=== PATIENT | male | born 1980 ===

== ENCOUNTER 2017-07-05 10:22 | Inpatient (IN) | payer MEDICAID, OTHER ==
[~2017-07-05] VITALS: Ht 180.3 cm; Wt 83.6 kg
[2017-07-05 10:41] VITALS: BP 126/73; PULSE 92; RESP 20; O2SAT 98
--- NOTE | 2017-07-05 11:58 | ED.REPORT ---
HPI-Psychiatric Illness Date of Service Jul 05, 2017 ED Provider: Alin Nguyen DO The pt is a 36 y/o male with a hx of bipolar disorder, schizophrenia, meth, heroin, and alcohol use who presents to the ED from [facility] for a mental health evaluation. As per the N staff member the pt has been anxious all night. He knocked over some furniture 3 days ago due to feeling frustrated and judged by the other men at the center. In the ED, he states he feels great and is trying to get better. He denies suicidal ideation, homicidal ideation, hallucinations, difficulty sleeping, and any other sx at this time. He reports he has not used drugs or alcohol for the last 60 days. He stopped taking Suboxone 2 weeks ago. Nursing Notes Stated Complaint: MENTAL HEALTH EVAL Chief Complaint: Psychiatric Complaint Nursing Notes Reviewed: Yes Allergies: Coded Allergies: No Known Allergies (Unverified , 07/05/17) General Time Seen by MD: 11:57 Chief Complaint Other (mental health eval) Hx Obtained From: Patient Arrived By: Walk-in Onset Occurred: Yesterday Severity: Current: No pain currently Severity: Maximum: No pain Recent Healthcare: No recent doctor visit Risk-Psychiatric Illness Suicide Risk Stratification RF Statements: Risk factors reviewed Past Medical History Past Medical History Bipolar disorder Schizophrenia Previous hx of meth and heroin use Past Surgical History none reported Smoking History Current Every Day Smoker Ambulatory Status Independent Review of Systems Denies: difficulty sleeping Psychiatric: Reports: Anxiety, Denies: Hallucinations, auditory, Hallucinations, visual, Homicidal ideation , Suicidal ideation Complete sys rev & neg: except as marked. Physical Exam Initial Vital Signs Vital Signs (First) Date Time Temp Pulse Resp B/P Pulse Ox O2 Delivery O2 Flow Rate FiO2 07/05/17 10:41 37.2 92 20 126/73 98 Room Air Initial VS: Reviewed Head / Eyes: Atraumatic, Normocephalic Neck: Supple, Non-tender, Full range of motion Respiratory: No respiratory distress Cardiovascular: Regular rate & rhythm Abdomen / GI: No guarding, No distention Extremities: Vascular intact, Neuro intact, No swelling, No tenderness Skin: Warm, Dry, No cyanosis General/Constitutional: Awake, Alert, No acute distress, Well appearing (clean) , Cooperative Neurologic: Oriented X3, Speech NL, No motor deficits, No sensory deficits Psychiatric: Affect NL, Not suicidal, Not homicidal, No hallucinations Abnormal Mood/Affect: Positive: Pressured speech States "I feel great" Interpretation & Diagnostics Lab Results Interpretation Test 07/05/17 11:29 Hold Urine Received (Received) Re-Eval/Medical Decision Med Decision/Clinical Course Patient is sent to the ER from a substance abuse inpatient facility for concerns for mental health. ER child welfare social worker has been involved and spoken with the facility multiple times. The facility is not palpable taking the patient back without stabilization of the mental health. Inpatient psychiatry at [facility] contacted, Dr. Hansen, he agrees to see the patient in the morning. Recommends dosing with risperidone. Risperidone was held initially as the prior 2 mg of Ativan has given the patient an appropriate level of calmness and de-escalation. The plan in the morning is to have psychiatry reevaluate the patient and either transfer the patient back to the substance abuse facility if the patient is more stable or admit the patient into the hospital for psychiatric treatment Source of Hx: Old records Re-Evaluation/Progress #1: Time of Eval: 12:08 Re-Evaluation/Progress Note: Discussed the plan to have a child welfare social worker meet the pt. He understands and agrees with the plan. All questions answered. Re-Evaluation/Progress #2: Time of Eval: 14:11 Re-Evaluation/Progress Note: The child welfare social worker states the pt can likely be discharged. She will contact [facility] for more information and concerns. Re-Evaluation/Progress #3: Time of Eval: 15:30 Re-Evaluation/Progress Note: DRY PLASTERER HELPER called [facility]. As per the evaluation done by the pt's melt supervisor at [facility], he had word salad and tangential speech. He was also hyperfocused on his notepad, had not been sleeping and reported that he was talking to spirits. The pt was sent to the ED given his sx and hx of bipolar disorder and schizophrenia. The pt's mother reports that he is on [place]. However as per the pt's melt supervisor, the pt has not been taking his medications. DRY PLASTERER HELPER does not think the pt is showing any concering sx in the ED and can be discharged. Re-Evaluation/Progress #4: Time of Eval: 15:47 Re-Evaluation/Progress Note: Rechecked the pt. He is pacing the room. When asked how he is feeling, he states "Ask Al [place]. He figured out global warming! Talk to him!". Re-Evaluation/Progress #5: Time of Eval: 16:06 Re-Evaluation/Progress Note: As per the child welfare social worker, [facility] will not accept the pt back due to his condition. They don't have staff to take care of pschiatric patients. Re-Evaluation/Progress #6: Time of Eval: 16:09 Re-Evaluation/Progress Note: Rechecked the pt with DRY PLASTERER HELPER. He does not want to be admitted. Consultation : Referral / Consult Name: Mio Hansen MD Consulted With: Psychiatry Call Returned at: 16:27 Life Insurance Agent: Will see patient, Agrees with eval, Agrees with plan, Accepts admit Note: Dr. Hansen recommends risperdal 4mg and admission if the pt is not stable by tomorrow morning. Counseled Regarding: Diagnosis, Lab results Discharge & Departure Shift Change Sign-Out Patient Care Transferred: Yes Discussed Complaint(s): Yes Laboratory Evaluation: Lab evaluation discussed Impression: Primary Impression: Schizophrenia Schizophrenia type: unspecified Qualified Code: F20.9 - Schizophrenia, unspecified )( Condition at Discharge: No suicidal ideation, No homicidal ideation Referrals: OTHER,PHYSICIAN (PCP) Care Transferred to: Dr. Little Care Transferred at: 18:00 Scribe Attestation Portions of this note were transcribed by Raina Bolanos. I,, personally performed the history,physical exam and medical decision-making;I reviewed and confirmed the accuracy of the information in the transcribed note. Signed by Alfie Price. 07/05/17 Alin Nguyen DO Jul 05, 2017 11:58 Raina Bolanos Jul 05, 2017 12:09
[2017-07-05 14:43] VITALS: BP 120/80; PULSE 90; RESP 16; O2SAT 100
[2017-07-05] MEDS ORDERED: LORazepam 1 mg Tablet PO ONE ×2 (15:40→15:50)
[2017-07-05] MEDS: risperiDONE 1 mg Tablet PO ONE ×2 (16:30→17:23)
--- NOTE | 2017-07-05 17:30 | NUR ---
ED MEAT CUTTING BLOCK REPAIRER Note D&A: Per RN, pt came from [facility] where he has been for the last month for inpt substance use tx. Pt tox screen is negative. Pt denying any current Suicidal or Homicidal ideation. MEAT CUTTING BLOCK REPAIRER called [facility] and spoke with the Clinical Take Up Supervisor Gianfranco who explained that pt has previous Dx of Schizophrenia and Bipolar disorder but was sent to their facility without any psychiatric medications and pt PCP is in [place]. Per Gianfranco from [facility], pt had decompensated over the weekend having an episode on Wednesday Night three days ago when he became angry and was throwing furniture. Pt was moved to a separate unit with less patients and stimulation. Per Gianfranco, pt was presenting with "word salad, strain of thought, inability to sleep Wednesday night, and denied any auditory or visual hallucinations but then spoke about talking to spirits and would be focused in writing in his notepad." Gianfranco explained that he was concerned about further decompensation and their facility's inability to treat or prescribe medications for his psychiatric illnesses and sent pt to the ED. Gianfranco explained he and their facility is most interested in pt receiving inpt hospitalization or at least a medication started that might help with his behaviors and stabilize him so he can continue his substance use tx. MEAT CUTTING BLOCK REPAIRER explained criteria for psychiatric inpt hospitalization. Gianfranco explained they did not feel comfortable accepting pt back to their facility without further attempts at stabilization. When met with pt, pt was having inconsistent behaviors and thoughts. Per RN, pt was making unusual statements about the air quality in [place] and Carbon monoxide. MEAT CUTTING BLOCK REPAIRER met with pt at bedside with MD briefly to discuss plan. Pt notepad with filled pages could be seen in pt room with him. Pt insight and judgement appeared to be impaired. Pt began to talk about finding "clarity and balance." MD discussed going back on [place] which Gianfranco stated pt had been on before, pt declined this due to weight gain. Pt was focused on discharging and getting back to his tx program. Pt was not agreeable to voluntary hospitalization but agreed to see psychiatrist to have medications looked at. Per MD, pt is not safe for discharge at this time. MD consulted with psychiatrist who will see pt tomorrow morning. Gianfranco from [facility] updated that pt will not be returning to their facility tonight. P: Pt to spend the night tonight and be evaluated by psych MD tomorrow morning for medication recommendations for stabilization prior to returning to [facility] for continued substance use tx. JONO Alonso
[2017-07-05 19:56] VITALS: BP 108/74; PULSE 84; RESP 14; O2SAT 100
[2017-07-05] MEDS ORDERED: risperiDONE 1 mg Tablet PO ONE (20:45)
[2017-07-05] MEDS ORDERED: LORazepam 2 mg Tablet PO ONE (20:45)
[2017-07-06 00:20] VITALS: PULSE 68; RESP 16; O2SAT 99
[2017-07-06] MEDS: OLANZapine Zydis ODT 5 mg Tablet PO SCH ×2 (03:14→08:30)
[2017-07-06] MEDS ORDERED: Ketamine 100 mg/mL 5 mL Inj ONE (05:23)
[2017-07-06] MEDS ORDERED: Haloperidol 5 mg/mL Inj ONE (05:25)
[2017-07-06] MEDS ORDERED: Haloperidol 5 mg/mL Inj IM STA (05:50)
[2017-07-06] MEDS ORDERED: Ketamine 100 mg/mL 5 mL Inj IM ONE (05:50)
[2017-07-06 06:09] VITALS: BP 145/83; PULSE 123; RESP 22; O2SAT 95
[2017-07-06 12:18] LABS: BASOPHILS % (AUTO) 0.1 % (0-3); EOSINOPHILS % (AUTO) 1.1 % (0-5); MONOCYTES % (AUTO) 8.7 % (4-12); Mean Corpuscular Hemoglobin 32.5 pg (27.0-35.0); Mean Corpuscular Volume 94.2 fL (81-100); NEUTROPHILS % (AUTO) 72.2 % (40-74); Platelet Count 323 bil/L (150-400)
[2017-07-06 16:30] VITALS: BP 119/79; PULSE 68; RESP 18; O2SAT 98
[2017-07-06] MEDS ORDERED: risperiDONE 2 mg Tablet PO SCH (17:25)
[2017-07-06] MEDS ORDERED: risperiDONE 2 mg Tablet PO ONE (18:31)
[2017-07-06 20:13] VITALS: BP 124/83; PULSE 72; RESP 18; O2SAT 99
[2017-07-06] MEDS ORDERED: Magnesium Hydroxide 10 mL Oral Concentration PO PRN (21:40)
--- NOTE | 2017-07-06 22:19 | NUR ---
Nursing Admit Pt arrival from our ED via wheelchair at 1940. AKILAH status 72 hour hold starting at 1805 on 07/06/19, pt deemed danger to self/gravely disabled. Pt to our ED directly from [facility] where pt had completed nearly on . Patient was noted to be having a psychotic break onset Wednesday with noted A/V hallucinations, word salad, and aggressive behavior. Pt required seclusion, restraints and medications to gain behavioral control in ED. Pt presents cooperative, medication compliant. HS snacks taken, PRN for sleep per patient request taken. Continuing to monitor mood, behavior, medication effectiveness and sleep quantity and quality. [facility] Addendum: 07/07/17 at 0521 by EILEEN RIDER RN 0530 Pt unable to get to sleep this shift. Up ambulating around unit, word salad, poor impulse control, difficult to direct, taking PRNs without difficulty.
[2017-07-06] MEDS ORDERED: ACYC400T2 PO (23:55)
[2017-07-06] MEDS ORDERED: BUPR1FIL3 SL (23:56)
[2017-07-06] MEDS ORDERED: PRAZ2CAP2 PO (23:57)
[2017-07-07] MEDS ORDERED: ACET500C49 PO (00:03)
[2017-07-07] MEDS ORDERED: ALBU8.5H2 INHALATION (00:12)
[2017-07-07] MEDS ORDERED: CALC-846 PO (00:15)
[2017-07-07] MEDS: LORazepam 1 mg Tablet PO PRN ×5 (00:27→22:34)
[2017-07-07] MEDS: hydrOXYzine Pamoate 25 mg Capsule PO PRN ×3 (00:27→19:38)
[2017-07-07] MEDS: OLANZapine Zydis ODT 5 mg Tablet PO SCH (06:21)
--- NOTE | 2017-07-07 12:24 | NUR ---
Nursing: Pt has been out on the unit, cooperative and calm. When asked for 2 words to describe how he feels, said, "peaceful and unified" He is speaking while eating with his eyes mostly closed and appears sedated. When asked what got him here, said"I was persuaded to come because of too much violence, " but denies feeling any of that now. He denies depression, anxiety, any disturbing thoughts, or A/V hallucinations. He is latent in his responses, polite in his requests and compliant with meds. He has a voracious appetite. He says, 'Tell them I want to go back to [place]." and says from there wants to go to [facility] in [place] which is apparently a hindu there. Addendum: 07/07/17 at 1250 by RYAN GUTIERREZ RN later expressed some restlessness and began cleaning and ordering the unit, walking, keeping busy Addendum: 07/07/17 at 1306 by RYAN GUTIERREZ RN 1299: Pt's calm and cooperative has become suddenly irritable and edgy and 2 mg Lorazepam and nicotine Lozenges given @ 1300. He requests notebook paper and a copy of the Pledge of Allegiance and this was given
[2017-07-07 12:32] VITALS: BP 113/52; PULSE 113
--- NOTE | 2017-07-07 15:53 | HP ---
[address] [address] HISTORY AND PHYSICAL PATIENT: JASON BLAND : 1980 MR#: [id number] ADMIT: 07/06/2017 JOB ID: [id number] IDENTIFICATION: The patient is a 36-year-old male, who had been staying at the [facility] chemical dependency treatment center. He is a poor historian and I do not have information about how long he has been staying or the degree of his substance use. REASON FOR ADMISSION: Client presented to the ED in transfer from [facility] for a psych evaluation. He had been posturing in an aggressive manner and threatening staff at [facility]. He is unable to return there until he has a psychiatric evaluation. HISTORY OF PRESENT ILLNESS: The patient presents today for evaluation and treatment of psychosis and threatening behavior. I met with him for a brief evaluation and reviewed course and records kept by [facility]. Client's main issue appears to be an exacerbation of schizophrenia. There are multiple notes in the chart where for several weeks he had been experiencing a high degree of stress and anxiety and had been up all night pacing and smoking. After a period of time, he began to become more psychotic stating delusional things such as "I am a [place]. [place] the [place]." "I am telling Alireza Guillen's and my story." He frightened the staff at [facility] and they brought him in here in the ED. He was initially calm but then became quite agitated and over a 48 hour period was given 8 mg of lorazepam, 20 mg of Haldol, 16 mg of Risperdal, 15 mg of Zyprexa, 1 mg of Klonopin, and 1000 mg of ketamine. He required four-point restraints and was transferred to our unit for care. The chronicity of his condition is unclear. At present, it is of a severe intensity, manifesting with symptoms of severe thought disorganization, impulse control, agitation and delusional thought. It all appears to be made worse by poor sleep, and a report that he had self discontinued Suboxone several weeks ago (client did have a heroin addiction in the past). At present, he is presenting with signs of significant emotional liability and marked impairment in judgment, insight, coping and reality testing. His impulse control is tenuous. Client refused to participate in psychiatric review of systems or physical review of systems. He refused to participate in past medical history, although from the ED. Medications none. Allergies none. Illnesses none. FAMILY MEDICAL HISTORY: Unknown. PAST PSYCHIATRIC HISTORY: There are references to schizophrenia, bipolar disorder and two inpatient hospitalizations at [facility]. His counselor at [facility] is Seamus. PSYCHOSOCIAL HISTORY: Client refused to participate although to the ED he stated he has struggled with heroin abuse. He denied legal issues. PHYSICAL EXAMINATION: Vital signs: 113/52, pulse 113, respiration 15, afebrile. Physical examination reviewed from the ED and essentially normal. LABORATORIES: CBC, liver, electrolytes, thyroid normal except for ALT of 76. Urine drug screen negative. BAL was negative. MENTAL STATUS EXAMINATION: Client was neatly dressed but had extremely poor eye contact and had an intense provocative stare. His behavior was restless, defiant and appeared hostile. His attitude was detached. Speech unintelligible or one-word responses. Pressured. Mood: Client refused to answer. Affect was high intensity, labile and appeared angry. Thought process: Client is unable to relate a coherent history at this time. His thought process is extremely concrete. He does not appear to be responding to internal stimuli. Thought content: Client refuses to talk. Cognition: Client refused to participate in orientation, memory or attention, concentrations. Client's insight and judgment are severely impaired. Impulse control poor. Client has a difficult time handling impulses of hunger or anger. Reality testing severely impaired. Competence to handle current stressors is currently being overwhelmed IMPRESSION: The patient is a 36-year-old male who has been staying at the [facility] trying to recover from previous substance abuse. There is a report that he has been a heroin addict as well as having schizophrenia, bipolar disorder, and two previous hospitalizations on the psychiatric unit at [facility]. He required an enormous amount of neuroleptics and sedatives to calm himself in the ED. At this time he is so sedated and nonverbal that I am concerned we may have oversedated him with the neuroleptics. We will try to get increased history from [facility] and his family over the next several days. Client has been detained on a 72 hour involuntary treatment hold and will go to court on Wednesday for a hearing. DIAGNOSIS: AXIS I 1. Preliminary psychosis, unspecified. 2. Reported schizophrenia. 3. Reported bipolar mood disorder. AXIS II Unknown. AXIS III None. AXIS IV Unknown. AXIS V Current global assessment of functioning equal to 25. PLAN: Recommend client be admitted to our unit and be provided with a high degree of safety through the structure and active adult engagement that he will receive here from mental health professionals and medical student, our mental health professionals, our psychiatric nurses and our the three psychiatrists on our staff. We will have him participate in one-to-one unit and group activities focused on improving coping skills, reality based thinking and coming up with a safety plan should psychosis return after discharge. At this time I will continue Risperdal at 4 mg h.s. Will try to meet with client on a daily basis to establish an alliance and will try to hydrate to minimize potential side effects of medications. The staff will use lorazepam if needed for agitation. Anticipate a 5-7 day stay.
[2017-07-07] MEDS ORDERED: IBUP400T22 PO (16:28)
[2017-07-07] MEDS: risperiDONE 2 mg Tablet PO SCH (19:38)
[2017-07-07] MEDS: Acyclovir 400 mg Tablet PO SCH (19:46)
--- NOTE | 2017-07-07 20:28 | NUR ---
Obs Dayshift Pt is restless at times, asks for things to do to keep busy or let out energy. Pt appears to do better w/ female staff, and does follow some directions for his aggression like pacing, listening to music, etc. Pt is internally preoccupied, and paranoid. Pt becomes delusional and irritable at times, restless and balling his fists. Pt can be redirected back to his room or to walk and talk w/ staff. Good ADL's, Good meals
--- NOTE | 2017-07-07 22:19 | NUR ---
NURSING NOTE [id number] Mood: "I don't need to be here. I want to go back to [facility]" Affect: disorganized, distracted, but polite and cooperative w/tx Behavior: pt. visible on fringes of milieu, sat in group room writing notes w/random words strewn across the pages, med compliant, requested his Acyclovir medication and PRN Tylenol and Ibuprofen for 8/10 [place] respectively. Pt. also given PRN Ambien and 50 mg Vistaril PRN @ HS. Pt. noted the ibuprofen is more effective than Tylenol for his [place]. Pt. seen trying to socialize w/female peers and avoiding male peers. Thought processes: paranoid, lacks insight into his condition, visibly responding to internal stimuli but denies AH/VH. Denies SI.
[2017-07-08] MEDS ORDERED: risperiDONE 2 mg Tablet PO ONE (02:35)
[2017-07-08] MEDS ORDERED: LORazepam 2 mg Tablet PO ONE (02:35)
--- NOTE | 2017-07-08 04:12 | NUR ---
Nursing Noc Pt noted to become more difficult to direct as shift continued, noted to become verbally hostile at one point while flexing his hands into fists. Pt was concerned that he was ready to leave now. "When can I get out of here" "I'm not spending another night here" " Everybody was yelling and screaming at N, if my dad had been there they would have had there asses kicked." Pt taking medications as directed, zero if any sleep this shift, Continuing to monitor mood, behavior and emotional state. Q15 minute safety checks, BHCP
[2017-07-08 08:00] VITALS: BP 108/74; PULSE 99; RESP 17
[2017-07-08] MEDS: Acyclovir 400 mg Tablet PO SCH ×2 (09:09→20:33)
--- NOTE | 2017-07-08 14:45 | NUR ---
NURSE NOTE DAY Mood: "My mood is great." Denies anxiety, depression. Affect: Restricted. Thought Process/Content: "I just want to win. I want to get out of here, get my stuff and go back to [facility]." Linear, goal-oriented. Behavior: Touched another female pt on back and should pt reminded that this is a no touch unit. Stands uncomfortably close to staff. Up for meals. Pacing halls. Attended community meeting. Addendum: 07/08/17 at 1446 by BALDEMAR DAVIS RN [employer]. AMBER Galeana.
--- NOTE | 2017-07-08 15:24 | PCM.PNPSY ---
Subjective Date of Service Jul 08, 2017 Subjective I spent 30 minutes both reviewing treatment plan with our clinical team, interviewing the patient and providing supportive/educational psychotherapy. I spent more than 50% of the time counseling the patient. I reviewed the treatment plan with the him and discussed options available including the potential risks, benefits and side effects. Chris reports a marked improvement in thought organization and mood stability. Staff reports that he has been active and participating well in one-to-one unit and group activities. He slept 6 hours and denies depression manic or psychotic symptoms review. Over the past 24 hours he has been more communicative and is not expressing psychotic thought. He is acting in a socially appropriate manner. He denies medication side effects. He was able to identify his medications and what they were used to treat. Current Medications Current Medications Acetaminophen 650 mg Q4H PRN PO Last administered on 07/07/17 15:20; Admin Dose 650 MG; Start 07/06/17 at 21:40 Acyclovir 400 mg BID PO Last administered on 07/08/17 09:09; Admin Dose 400 MG ; Start 07/07/17 at 20:30 Clonazepam 1 mg HS PRN PO Last administered on 07/07/17 19:38; Admin Dose 1 MG ; Start 07/06/17 at 21:40 Hydroxyzine Pamoate 50 mg Q4H PRN PO Last administered on 07/07/17 19:38; Admin Dose 50 MG; Start 07/06/17 at 21:40 Ibuprofen 600 mg Q6H PRN PO Last administered on 07/07/17 18:27; Admin Dose 600 MG; Start 07/06/17 at 21:40 Lorazepam 1-2MG PO DAILY PRN ANXIETY/ AGITATION DAILY PRN PO Last administered on 07/07/17 22:34; Admin Dose 2 MG; Start 07/06/17 at 21:40 Lorazepam 2 mg OT ONCE PO Last administered on 07/08/17 02:34; Admin Dose 2 MG ; Start 07/08/17 at 02:35; Stop 07/08/17 at 02:36; Status DC Nicotine 1 patch DAILY TOPICAL Last administered on 07/08/17 07:05; Admin Dose 1 PATCH; Start 07/06/17 at 22:21 Nicotine Polacrilex 2 mg Q2H PRN PO Last administered on 07/07/17 22:34; Admin Dose 2 MG; Start 07/06/17 at 22:25 Risperidone 2 mg OT ONCE PO Last administered on 07/08/17 02:34; Admin Dose 2 MG; Start 07/08/17 at 02:35; Stop 07/08/17 at 02:36; Status DC Risperidone 4 mg DAILY@2030 PO Last administered on 07/07/17 19:38; Admin Dose 4 MG; Start 07/07/17 at 20:30 Risperidone 4 mg ONCE ONCE PO Last administered on 07/06/17 18:55; Admin Dose 4 MG; Start 07/06/17 at 18:31; Stop 07/06/17 at 18:32; Status DC Mental Status Exam Vital Signs Vital Signs Date Time Temp Pulse Resp B/P Pulse Ox O2 Delivery O2 Flow Rate FiO2 07/08/17 08:00 36.2 99 17 108/74 Appearance: Neat/well groomed Attitude: Pleasant, Cooperative Behavior: No unusual behavior Affect: Well Modulated/Appropriate Mood: Dysthymic Thought Process/Associations: Goal Directed Speech Production: Normal Speech Rate: Normal Speech Articulation: Normal Thought Content: Appropriate Danger to Self/Suicidal Ideati: None Danger to Others: None Consciousness: Alert Orientation: Person, Place, Date, Situation Memory: Grossly Intact Estimate Intellectual Function: Above Average Basis for IQ estimate: Awareness current events, Word use/vocabulary, Educational history, Employment history Attention/Concentration & Cogn: Grossly Intact Cognitive Testing Method: Abstract Reasoning during interview, Proverb interpretation, Serial computations, Spelling forward & backward Insight: Limited Judgement: Limited Result Diagram: 07/06/17 1205 07/06/17 1205 Mental Health Plan The patient is a 36-year-old male who has been staying at the [facility] trying to recover from previous substance abuse. There is a report that he has been a heroin addict as well as having schizophrenia, bipolar disorder, and two previous hospitalizations on the psychiatric unit at [facility]. He required an enormous amount of neuroleptics and sedatives to calm himself in the ED. At this time he is so sedated and nonverbal that I am concerned we may have oversedated him with the neuroleptics. We will try to get increased history from [facility] and his family over the next several days. Client has been detained on a 72 hour involuntary treatment hold and will go to court on Wednesday for a hearing. Today he had a significant improvement in thought organization and mood stability. He denies medication side effects and believes he is on the right track to recovery. He was still somewhat confused about what happened and how he can set up treatment. I believe he would benefit from an additional 3-5 days of stabilization. [place] AXIS I 1. Preliminary psychosis, unspecified. 2. Reported schizophrenia. 3. Reported bipolar mood disorder. AXIS II Unknown. AXIS III None. AXIS IV Unknown. AXIS V Current global assessment of functioning equal to 40. Treatments Patient is being provided with a high degree of safety through our unit structure and active adult engagement provided by our mental health professionals, mental health technicians, psychiatric nurses and myself. We are focusing on developing improved coping skills and identifying stressors that may have led to current episode. We will attempt to: * Integrate into therapeutic groups, milieu and individual therapy. * Maintain in a closely monitored and structured unit * Provide low-stimulation environment * Obtain collateral data to assist in treatment planning * Assess degree of lability of affect and impulse control * Complete safety plan * Decrease frequency of relapse and need for re-hospitalization * Denies thoughts of harm to self and/or others * Establish a consistent sleep pattern * Medication effective in stabilization of mood and/or thought process * Reduce the risk of imminent harm to self and/or others by providing a safe environment * Tolerates medication without side effects Patient will be on the following psychiatric medications: Risperdal 4 mg at bedtime Education: Educate patient about recreational drug use as an etiology Educate about metabolic etiologies related to obesity Patient's legal status Patient is on a 72 hour involuntary treatment hold. Patient will be given the opportunity to talk to her rn bariatric and the rpg programmer Wednesday Anticipated number of hospital days to achieve above goals: 5 Disposition: [facility] Mio Glez MD Jul 08, 2017 15:24
--- NOTE | 2017-07-08 16:26 | NUR ---
Observations 0700 to 1900 Pt attended and participated in community meeting. Pt attended recreational activities. Pt ate a snack. Pt showered and had clothes washed. Pt appears pressured and easily angered at times. Pt is pleasant with female staff. Pt did not rest during shift. Breakfast: 100%. Lunch: 100%. Staff completed 15 min close observations as ordered.
[2017-07-08] MEDS: risperiDONE 2 mg Tablet PO SCH (20:33)
--- NOTE | 2017-07-08 23:10 | NUR ---
NURSE NOTE EVENING SHIFT [id number]: Pt has been active in the unit, using the group room, TV and walking around. Pt is friendly, polite, and calm with staff and others in the milieu, even assisting a Pt in his wheelchair. Pt has walked out of the bathroom in just a towel, or out of his room without a shirt, but has been polite when addressed by staff. Pt shows no signs of experiencing internal stimuli. Pt monitored q15 min. for safety, location and accountability.
--- NOTE | 2017-07-09 02:55 | NUR ---
nursing, nights, 11-7 s- when can i shower ? i had a bad dream about tupac. shots were fired. i know it was tupac. i don't want to much. how about just the klonopin. do you know about tupacolypse ? can i have the pledge of allegiance ? it worked minimally. yea i'll try that. thanks. o- has appeared to sleep after 2300 to midnight and [id number], asked for and received 1 mg of klonopin at 0200 and later 50 mg of vistaril at 0300. is currently lying quietly in bed. assessed q 15 minutes. a- inadequate/interupted sleep, responded well to staff reassurance and support, medication helpful, no apparent physical distress. p- monitor behavior/emotional state, quality, times and amount of sleep, use and effect of medication. lonnie
[2017-07-09] MEDS: Acyclovir 400 mg Tablet PO SCH ×2 (08:01→21:07)
[2017-07-09 12:35] VITALS: BP 125/77; PULSE 102; RESP 18
--- NOTE | 2017-07-09 12:56 | NUR ---
Nursing Note [id number] Behavior S/O: Pt has good appetite. Pt c/o neck pain he rated at a "4.5" on a scale of 1-10/10 the worst. Pt requested ibuprofen. 600 mg given with good effect. Pt signed SON for Zaynab Yañez of the [facility]. Pt is pleasant & cooperative. Some irritation noted when overstimulated by other patients on unit. Pt denied AH this morning, but was seen talking to himself later in the day. Pt took medications as ordered. A: Pt is slowly improving. P: Provide supportive environment. Monitor medications & effects.
--- NOTE | 2017-07-09 13:24 | PCM.PNPSY ---
Subjective Date of Service Jul 09, 2017 Subjective I spent 30 minutes both reviewing treatment plan with our clinical team, interviewing the patient and providing supportive/educational psychotherapy. I spent more than 50% of the time counseling the patient. I reviewed the treatment plan with the him and discussed options available including the potential risks, benefits and side effects. Chris reports continued improvement in thought organization and mood stability. Staff reports that he has been active and participating well in one-to-one unit and group activities. He slept only 2 hours and denies depression manic or psychotic symptoms review. Over the past 24 hours he has been more communicative and is not expressing psychotic thought. He is acting in a socially appropriate manner however he has in intensity that is demonstrated in his eye gazing, his speech and his ideas. I believe that Chris is in a manic phase. He is currently contained but I believe he needs an additional week of treatment. He denies medication side effects. He was able to identify his medications and what they were used to treat. Current Medications Current Medications Acyclovir 400 mg BID PO Last administered on 07/09/17 08:01; Admin Dose 400 MG; Start 07/07/17 at 20:30 Lorazepam 2 mg OT ONCE PO Last administered on 07/08/17 02:34; Admin Dose 2 MG ; Start 07/08/17 at 02:35; Stop 07/08/17 at 02:36; Status DC Risperidone 2 mg OT ONCE PO Last administered on 07/08/17 02:34; Admin Dose 2 MG; Start 07/08/17 at 02:35; Stop 07/08/17 at 02:36; Status DC Risperidone 4 mg DAILY@2030 PO Last administered on 07/08/17 20:33; Admin Dose 4 MG; Start 07/07/17 at 20:30 Mental Status Exam Appearance: Neat/well groomed Attitude: Pleasant, Cooperative Behavior: No unusual behavior Affect: Well Modulated/Appropriate Mood: Euphoric Thought Process/Associations: Goal Directed Speech Production: Normal Speech Rate: Pressured Speech Articulation: Normal Thought Content: Appropriate Danger to Self/Suicidal Ideati: None Danger to Others: None Consciousness: Alert Orientation: Person, Place, Date, Situation Memory: Grossly Intact Estimate Intellectual Function: Above Average Basis for IQ estimate: Awareness current events, Word use/vocabulary, Educational history, Employment history Attention/Concentration & Cogn: Grossly Intact Cognitive Testing Method: Abstract Reasoning during interview, Proverb interpretation, Serial computations, Spelling forward & backward Insight: Good Judgement: Limited Result Diagram: 07/06/17 1205 07/06/17 1205 Mental Health Plan The patient is a 36-year-old male who has been staying at the [facility] trying to recover from previous substance abuse. There is a report that he has been a heroin addict as well as having schizophrenia, bipolar disorder, and two previous hospitalizations on the psychiatric unit at [facility]. He required an enormous amount of neuroleptics and sedatives to calm in the ED. At that time he was so sedated and nonverbal that I was concerned we had oversedated him with the neuroleptics. He showed a gradual and steady improvement in social interactions and ADLs Over the past 72 hours. Today he had a significant improvement in thought organization and mood stability. He denies medication side effects and believes he is on the right track to recovery. He was still somewhat confused about what happened and how he can set up treatment. I believe he would benefit from an additional 3-5 days of stabilization. He slept only 2 hours and also he denies depression manic or psychotic symptoms review I believe that he is in a manic phase. He is currently contained but I believe he needs an additional week of treatment. [place] AXIS I 1. Preliminary psychosis, unspecified. 2. Reported schizophrenia. 3. Reported bipolar mood disorder. AXIS II Unknown. AXIS III None. AXIS IV Unknown. AXIS V Current global assessment of functioning equal to 40. Treatments Patient is being provided with a high degree of safety through our unit structure and active adult engagement provided by our mental health professionals, mental health technicians, psychiatric nurses and myself. We are focusing on developing improved coping skills and identifying stressors that may have led to current episode. We will attempt to: * Integrate into therapeutic groups, milieu and individual therapy. * Maintain in a closely monitored and structured unit * Provide low-stimulation environment * Obtain collateral data to assist in treatment planning * Assess degree of lability of affect and impulse control * Complete safety plan * Decrease frequency of relapse and need for re-hospitalization * Denies thoughts of harm to self and/or others * Establish a consistent sleep pattern * Medication effective in stabilization of mood and/or thought process * Reduce the risk of imminent harm to self and/or others by providing a safe environment * Tolerates medication without side effects Patient will be on the following psychiatric medications: Risperdal 4 mg at bedtime Initiate Depakote 250 mg twice a day Labs: Check Depakote level and CBC in 5 days Education: Educate patient about recreational drug use as an etiology Educate about metabolic etiologies related to obesity Patient's legal status Patient is on a 72 hour involuntary treatment hold. Patient will be given the opportunity to talk to her patternmaker plastics and the drafter landscape Wednesday Anticipated number of hospital days to achieve above goals: Depending on how client response in the next several days may be able to be transitioned back to [facility] anywhere from 3-7 days Disposition: Chalino Rocha Vance MD Jul 09, 2017 13:24
[2017-07-09] MEDS: hydrOXYzine Pamoate 25 mg Capsule PO PRN (16:23)
--- NOTE | 2017-07-09 20:18 | NUR ---
Dust Brush Assembler/Counselor: S: "How are you this morning?" O: Patient only slept 2 hours last night per staff. Patient denies S/I and H/I. He also denies auditory and visual hallucinations. Depression is 0/10 and anxiety is 0/10. When asked his mood, patient stated, "I'm doing good." A: Patient is cooperative, pleasant, euphoric, dysthymic, limited insight, limited judgment. P: Follow the care plan, coordinate with out-patient providers.
[2017-07-09] MEDS: risperiDONE 2 mg Tablet PO SCH (21:07)
--- NOTE | 2017-07-09 23:55 | NUR ---
Noc OBS [id number] Pt up and out on unit/pacing most of the night. He only slept 2.75 hours. Pt speech random. Appears to be responding to internal stimuli as he has been observed talking to self/someone not there. Observed Q15 as ordered.
[2017-07-10] MEDS: LORazepam 1 mg Tablet PO PRN ×3 (01:46→15:27)
--- NOTE | 2017-07-10 03:06 | NUR ---
nursing, nights, 11-7 s- we saved you. your . i'm portuguese. were warriors. no war. i'm not awol. chief jamia. sitting bull. red cloud. robert. our forefathers. no weapon of mass destruction. o- alternates between his room and the dinning room. will approach staff with above statements. has brief periods of agitation but can calm and has generally displayed appropriate behavior. received 400 mg of motrin at 0120 2 mg of ativan at 0145. slept briefly for maybe a half an hour. sitting in the dinning room praying. asked for and received 50 mg of vistaril at 0330. is currently writing in his room. a- inadequate sleep, responding to internal stimuli, responds well to staff support. no apparent physical distress. p- monitor behavior/emotional state, quality, times and amount of sleep, use and effect of medication. lonnie
[2017-07-10] MEDS: hydrOXYzine Pamoate 25 mg Capsule PO PRN ×4 (03:29→20:52)
[2017-07-10] MEDS: Benzocaine-Menthol Lozenge 2/Pkg PO PRN ×2 (08:00→13:47)
[2017-07-10] MEDS: Acyclovir 400 mg Tablet PO SCH ×2 (08:21→20:54)
[2017-07-10 09:45] VITALS: BP 118/72; PULSE 105; RESP 18
[2017-07-10] MEDS: risperiDONE 2 mg Tablet PO SCH ×2 (10:55→20:49)
[2017-07-10] MEDS: Divalproex (QD) 500 mg ER24 Tablet PO SCH ×2 (10:56→20:53)
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
[2017-07-10] MEDS ORDERED: guaiFENesin DM 100-10 mg/5 mL 118 mL Syrup PO PRN (17:00)
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
[2017-07-11] MEDS: LORazepam 1 mg Tablet PO PRN ×3 (00:20→09:35)
[2017-07-11] MEDS: hydrOXYzine Pamoate 25 mg Capsule PO PRN ×2 (02:05→09:30)
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
[2017-07-11] MEDS: risperiDONE 2 mg Tablet PO SCH ×2 (08:47→20:49)
[2017-07-11] MEDS: Divalproex (QD) 500 mg ER24 Tablet PO SCH ×2 (08:47→20:49)
[2017-07-11] MEDS: Acyclovir 400 mg Tablet PO SCH ×2 (08:47→20:49)
[2017-07-11 09:15] VITALS: BP 112/75; PULSE 111; RESP 16
--- NOTE | 2017-07-11 09:49 | NUR ---
Nursing 7a-3p Pt calmer in the agronomy teacher after receiving prn medication from shift stacker. He was able to shower and attend to ADLs. He ate breakfast and took scheduled morning medications without difficulty. He used the telephone and by midmorning he was becoming increasingly pressured, agitated and yelling. He was demanding his belongings and to be discharged by the . Pt accepted Vistaril 50mg po prn and Ativan 2 mg po prn for agitation. He was redirected by staff and appears calmer after medication. He appears internally preoccupied, blunt affect, hypervigilant in presentation. Will continue to monitor medication efficacy, mood and behavior on the unit. Addendum: 07/11/17 at 1337 by ELDON BARRERA RN Pt received Ibuprofen 600mg po prn for neck pain rated 7/10. Pt reported medication helped "pain completely gone." Pt remains pleasant and calm for the remainder of the shift. He attended morning group and spent the afternoon in art group.
--- NOTE | 2017-07-11 12:28 | PCM.PNPSY ---
Subjective Date of Service Jul 11, 2017 Subjective The patient was agitated last evening and had difficulty sleeping despite Ambien 10 mg, lorazepam 8 mg in 24 hours, clonazepam 1 mg, hydroxyzine 200 mg in 24 hours. The patient denies side effects and reports that he actually slept okay. The patient is now stating that he did like to stay in the hospital until proper disposition and housing arranged. We discussed the [facility] as well as the [facility]. In order to be referred to the [facility] he would have to be referred by E[facility]alia Cassidy, [facility] [address] [facility] The patient denies side effects. He denies paranoia. We discussed having Thorazine available for paranoia and the patient was agreeable. Sleep: 4 hours Appetite: "Good" Suicidal and homicidal ideation: Denies Auditory hallucinations/Visual hallucinations: Denies Other Psychotic Symptoms: Some thought blocking, paranoia Anxiety: Denies Depression: Denies Current Medications Current Medications Divalproex Sodium 250 mg BID PO Last administered on 07/10/17 08:20; Admin Dose 250 MG; Start 07/09/17 at 20:30; Stop 07/10/17 at 10:43; Status DC Divalproex Sodium 500 mg DAILY PO Last administered on 07/11/17 08:47; Admin Dose 500 MG; Start 07/10/17 at 10:45 Divalproex Sodium 1,000 mg HS PO Last administered on 07/10/17 20:53; Admin Dose 1,000 MG; Start 07/10/17 at 21:00 Lorazepam 1-2MG Q4H PRN PO Last administered on 07/11/17 09:35; Admin Dose 2 MG ; Start 07/11/17 at 00:20; Stop 07/11/17 at 12:07; Status DC Risperidone 2 mg DAILY PO Last administered on 07/11/17 08:47; Admin Dose 2 MG; Start 07/10/17 at 10:45 Zolpidem Tartrate 5-10MG HS PRN PO Last administered on 07/11/17 02:05; Admin Dose 5 MG; Start 07/11/17 at 00:15 Mental Status Exam Vital Signs Vital Signs Date Time Temp Pulse Resp B/P Pulse Ox O2 Delivery O2 Flow Rate FiO2 07/11/17 09:15 36.2 111 16 112/75 Appearance: Neat/well groomed Attitude: Cooperative, Guarded Behavior: Other (sedated appearing) Affect: Blunted Mood: Other ("okay") Thought Process/Associations: Goal Directed Speech Production: Paucity Speech Rate: Lags/Latency Speech Articulation: Other (dysarthric) Thought Content: Perseveration Danger to Self/Suicidal Ideati: None Danger to Others: None Hallucinations: Auditory (Denies), Visual (Denies) Consciousness: Somnolent Orientation: Person, Place, Date, Situation Memory: Short Term Memory (Impaired) Estimate Intellectual Function: Average Basis for IQ estimate: Word use/vocabulary, Educational history, Employment history Attention/Concentration & Cogn: Impaired Insight: Limited Judgement: Limited Result Diagram: 07/06/17 1205 07/06/17 1205 Mental Health Plan The patient is a 36-year-old male who has been staying at [facility] for substance use treatment. Reportedly the patient has a history of heroin use disorder, schizophrenia, bipolar disorder, and two previous hospitalizations on the psychiatric unit at [facility]. He required a large amount of neuroleptics and sedatives to calm in the ED. by report, he is showed gradual and steady improvement with social interactions and ADLs since hospitalization. Due to irritability, Depakote ER was increased to 500 mg daily and 1000 mg nightly and Risperdal was increased to 2 mg daily and 4 mg at bedtime. The patient appears to be tolerating this dose but is still experiencing some breakthrough symptoms. He is agreeable to as needed chlorpromazine. The patient may be experiencing some disinhibition from the large doses of lorazepam combined with clonazepam and per patient preference we will switch to clonazepam only. [facility] was reached today with information as noted above. Other agencies will be open Wednesday. Information is below: [facility] Address: [address] [place] [id number] [facility] [place], [place] [address] [place] [address] [email or web address] [employer] [facility] Address: [address] [place] [address] [email or web address] [place] AXIS I 1. Psychotic disorder unspecified versus schizophrenia 2. Bipolar disorder by report AXIS II deferred AXIS III None acute. AXIS IV Unknown. AXIS V Current global assessment of functioning equal to 30 Medications Depakote ER 500 mg daily and 1000 mg nightly Risperidone 2 mg daily and 4 mg nightly Chlorpromazine 50 mg 4 times daily as needed for severe agitation Acyclovir 400 mg twice daily Clonazepam 1 mg every 6 hours as needed for anxiety or agitation Hydroxyzine 50 mg every 4 hours as needed for anxiety or agitation Treatments 1. The patient is admitted to the inpatient unit and will be provided a safe and secure environment. 2. The patient is denying current active suicidality and is not in need of a one-to-one at this time. 3. The patient is encouraged to participate with group and milieu activities. 4. The patient will be seen by the treatment team on a daily basis to assess symptoms, side effects and response to treatment. 5. Discontinue lorazepam 6. Increase clonazepam to 1 mg every 4 hours when necessary anxiety or agitation 7. Consider [facility] as noted above. 8. Check Depakote level on 07/14/17 9. Anticipated length of stay is 7-10 days. Seamus Brizuela MD Jul 11, 2017 12:28
--- NOTE | 2017-07-11 17:18 | NUR ---
Nursing Note [id number] S: "I finally feel like I am thinking better and I can start making plans". O: Patient visible on unit, interacting appropriately with peers and staff. Reports anxiety -12/18, depression 02/15. Denies SI/HI or hallucinations. A: Affect brighter/future oriented. Calm, cooperative, thoughts more organized, reporting decreased anxiety. P: Monitor for safety and response to treatment. Follow plan of care. Addendum: 07/11/17 at 1721 by ANSELMO CULP RN Disregard note-wrong patient.
--- NOTE | 2017-07-11 17:21 | NUR ---
Disregard previous note-wrong patient
--- NOTE | 2017-07-11 18:54 | NUR ---
Observations [id number] Pt spent majority of day in group room listening to music and journaling, appearing to write down lyrics. Pt attended Community Meeting, friendly with peers and staff. He appears to be responding to internal stimuli at times. Pt attended all meals, eating 100%. Good with ADL's, was observed every 15 minutes of shift as directed.
[2017-07-11] MEDS: Alum-Mag Hydrox-Simeth 30 mL Suspension PO PRN (23:48)
--- NOTE | 2017-07-11 23:48 | NUR ---
Nurses Note Evening Patient has remained in behavioral control this shift while writing and listening to music most of the shift. He has remained medication compliant without adverse effect. His thoughts have been clear,organized and reality based. Continue q 15min. checks for safety and support. Addendum: 07/11/17 at 2351 by MARGARITA HOPSON RN Amended: Links added.
--- NOTE | 2017-07-12 06:53 | NUR ---
Nursing Note International Relations Teacher 11pm to 7am Pt awake majority of shift, continues to enter female pts rooms in the night despite clear limits. Female peer awoke to find pt sitting on edge of her bed stroking her shoulder. Staff discussed the inappropriateness of behavior and he verbalized understanding. Pt given Ambien 5mg and Klonopin 1mg at 2330 with no effect. Within the hour pt came out again, insisting to walk the halls. Pts affect was angry and he his glare was menacing, thoughts illogical and perseverative. T/C to security who has a good rapport and they were able to coax him back to his room. T/C to Dr. Brziuela and obtained an order for Thorazine 100 po prn for insomnia with a repeat dose. Pt took the medication with no relief. Pt remained awake in his room yelling delusional statements. Pt came out of his room again, and when this staff asked him to return to his room he refused, came to the window stating This is my unit, Im the patriot, Oh Your going to call security on my, is that how it is , and called this typewriter assembler by name. His fists were clenched, he was posturing and menacing. Security arrived on the unit and was able to coax him back to his room again. Pt came out at 0630 and agreed to follow unit rules. Apologized to this typewriter assembler and agreed to no violence only peace. Report given to oncoming RN who verbalized understanding of pt threat to others. Monitored q 15 minutes for safety, location, and accountability
[2017-07-12] MEDS: Divalproex (QD) 500 mg ER24 Tablet PO SCH ×2 (07:39→21:40)
[2017-07-12] MEDS: Acyclovir 400 mg Tablet PO SCH ×2 (07:39→21:41)
[2017-07-12] MEDS: risperiDONE 2 mg Tablet PO SCH ×2 (07:39→21:38)
[2017-07-12 11:00] VITALS: BP 122/76; PULSE 119; RESP 18
--- NOTE | 2017-07-12 13:12 | NUR ---
Nursing 7a-3p Pt has spent all day awake and out in the milieu listening to music and writing down random thoughts on blank paper. He has maintained behavioral control and maintained appropriate interactions with his peers. Eating meals and attending to his ADLs. Pt polite and cooperative upon interaction with staff. Pt reports feeling "Glorious!" then laughing to self. Eye contact intense. Conversation limited with tangential themes. Took scheduled medication without difficulty.
--- NOTE | 2017-07-12 13:48 | PCM.PNPSY ---
Subjective Date of Service Jul 12, 2017 Subjective Per nursing note, the patient entered two female patient's rooms despite redirection. The patient received both zolpidem and clonazepam with no effect and he slept very little. The patient was noted to have a menacing glare with illogical and perseverative thoughts per report. Security was required to coax patient back to his room. According to nursing notes he stated, "This is my unit, Im the patriot, Oh Your going to call security on my, is that how it is?" and security again was called to coax him back to his room. He later apologized to staff. The patient reports this morning, "kind of in and out and not myself. Trying to figure out the better man inside me when I was first born an innocent free of all guilt." When asked about going into other's rooms he stated, "trying to find love and all the wrong places." He had a clanging rambling," pollution, evolution, resolution, solution." He went on to add "I am a people phobe... I could address the nation show unity for mother earth." He denies side effects. Sleep: One hour per staff Appetite: "10/10" Suicidal and homicidal ideation: Denies Auditory hallucinations/Visual hallucinations: Denies, "just love music." Other Psychotic Symptoms: Rambling and disorganized as noted above. Anxiety: Denies Depression: "I do not have a son to look after." Current Medications Current Medications Chlorpromazine 100MG PO HS PRN FOR INSOMN... HS PRN PO Last administered on 07/12 03:25; Admin Dose 100 MG; Start 07/12/17 at 01:05 Clonazepam 1 mg Q4H PRN PO Last administered on 07/11/17 23:33; Admin Dose 1 MG ; Start 07/11/17 at 12:05 Divalproex Sodium 1,000 mg HS PO Last administered on 07/11/17 20:49; Admin Dose 1,000 MG; Start 07/10/17 at 21:00 Lorazepam 1-2MG Q4H PRN PO Last administered on 07/11/17 09:35; Admin Dose 2 MG ; Start 07/11/17 at 00:20; Stop 07/11/17 at 12:07; Status DC Zolpidem Tartrate 5-10MG HS PRN PO Last administered on 07/11/17t 23:33; Admin Dose 5 MG; Start 07/11/17 at 00:15 Mental Status Exam Vital Signs Vital Signs Date Time Temp Pulse Resp B/P Pulse Ox O2 Delivery O2 Flow Rate FiO2 07/12/17 11:00 36.1 119 18 122/76 Appearance: Neat/well groomed Attitude: Cooperative, Guarded Behavior: Other (sedated appearing) Affect: Blunted Mood: Other ("I feel optimistic") Thought Process/Associations: Goal Directed Speech Production: Abundant Speech Rate: Normal Speech Articulation: Normal Thought Content: Perseveration, Other Danger to Self/Suicidal Ideati: None Danger to Others: None Hallucinations: Auditory (Denies), Visual (Denies) Consciousness: Somnolent Orientation: Person, Place, Situation Memory: Short Term Memory (Impaired) Estimate Intellectual Function: Average Basis for IQ estimate: Word use/vocabulary, Educational history, Employment history Attention/Concentration & Cogn: Impaired Insight: Limited Judgement: Limited Result Diagram: 07/06/17 1205 07/06/17 1205 Mental Health Plan The patient is a 36-year-old male who has been staying at [facility] for substance use treatment. Reportedly the patient has a history of heroin use disorder, schizophrenia, bipolar disorder, and two previous hospitalizations on the psychiatric unit at [facility]. He required a large amount of neuroleptics and sedatives to calm in the ED. by report, he is showed gradual and steady improvement with social interactions and ADLs since hospitalization. Due to irritability, Depakote ER was increased to 500 mg daily and 1000 mg nightly and Risperdal was increased to 2 mg daily and 4 mg at bedtime. The patient was agitated last night and received Thorazine and reported it was somewhat helpful though he did not sleep well. He is demonstrating clang associations are loose and disorganized thinking but is fairly pleasant during the day. He is more inappropriate at night. The patient is still interested in either going to the [facility] or the [facility]. Information regarding agencies is below: [facility] Address: [address] [facility], [place] [address] [place], [place] [address] [facility] [place] [address] [email or web address]/ [facility] Address: [address] [place] [address], [place] [address] [email or web address] [place] AXIS I 1. Psychotic disorder unspecified versus schizophrenia 2. Bipolar disorder by report AXIS II deferred AXIS III None acute. AXIS IV Unknown. AXIS V Current global assessment of functioning equal to 30 Medications Depakote ER 500 mg daily and 1000 mg nightly Risperidone 2 mg daily and 4 mg nightly Chlorpromazine 50 mg 4 times daily as needed for severe agitation Acyclovir 400 mg twice daily Clonazepam 1 mg every 6 hours as needed for anxiety or agitation Hydroxyzine 50 mg every 4 hours as needed for anxiety or agitation Treatments 1. The patient is admitted to the inpatient unit and will be provided a safe and secure environment. 2. The patient is denying current active suicidality and is not in need of a one-to-one at this time. 3. The patient is encouraged to participate with group and milieu activities. 4. The patient will be seen by the treatment team on a daily basis to assess symptoms, side effects and response to treatment. 5. Encourage patient to be up during the day to sleep better at night. 6. Increase clonazepam to 1 mg every 4 hours when necessary anxiety or agitation 7. Consider [facility] as noted above. 8. Check Depakote level on 07/14/17 9. Anticipated length of stay is 7-10 days. 10. 1:1 in the evening due to inappropriate behavior last night. Seamus Brizuela MD Jul 12, 2017 13:48
--- NOTE | 2017-07-12 17:23 | NUR ---
Cashier Gambling/Counselor S:"I'm trying to find myself. I'm trying to return to being innocent like when I was first born." O: Patient denies any SI or HI, no AVH, no anxiety or depression. A: Patient has been spending most of the day in the group room listening to music. Preoccupied with writing things down and very tangential. Nonsensical and disorganized. P: Follow care plans and coordinate with outpatient providers. Addendum: 07/12/17 at 1728 by BIENVENIDO CASSIDY [facility] See 's note for possible housing opportunities post discharge- Dixon Chris BasileHuma Matt Talbot Basile.
--- NOTE | 2017-07-12 23:39 | NUR ---
NURSE NOTE EVENING SHIFT [id number]: Pt has been active between the group room and his room throughout the shift. Pt had dinner then alternates between his room and the group room to listen to music. Pt stayed respectful to staff and other Pts. Pt went to bed at 2200. Pt monitored q15 minutes for location, safety and accountability.
--- NOTE | 2017-07-13 03:56 | NUR ---
Observations 1900 to 0700 Pt ate a snack. Pt spends time coloring in the group room. Pt is mildly social with peers but observed pacing unit and appears to be responding to internal stimuli, in which he is talking to self. Pt has a sitter at night due to intrusiveness. Pt observed getting broken sleep and at 0345 came out of room randomly laughing. Pt respirations were observed when asleep. Staff completed 15 min close observations as ordered.
--- NOTE | 2017-07-13 07:19 | NUR ---
Nursing Note 11pm to 7am Pt had a male 1:1 on wellness ambassador due to danger to others, threatening staff and peers yesterday, posturing, lack of frustration tolerance and and entering female peer rooms the night before. Pt had difficulty staying in his room tonight. Came out several times every hour requesting to walk the halls and a variety of miscellaneous requests. Pt thoughts were illogical, disorganized, religiously focused and grandiose. Pt was easily agitated and could be seen escalating quickly but calmed with reassurance by select male staff. Pt received Klonopin 1mg po, thorazine 50mg po and Ambien 5mg at 0021 and thorazine and klonopin again at 0445 with little effect. No physical outpurts last night but very close to loosing control. Report given to oncshan PAUL.
[2017-07-13] MEDS: Acyclovir 400 mg Tablet PO SCH ×2 (08:03→20:33)
[2017-07-13] MEDS: risperiDONE 2 mg Tablet PO SCH ×2 (08:04→20:36)
[2017-07-13] MEDS: Divalproex (QD) 500 mg ER24 Tablet PO SCH ×2 (08:04→20:36)
[2017-07-13] MEDS ORDERED: risperiDONE 2 mg Tablet PO PRN (09:45)
--- NOTE | 2017-07-13 14:55 | NUR ---
Nursing 7a-3p Pt has maintained behavioral control through the day. Agreeable to all offered medication. He went to court, saw both the global implementation manager & doctor and agreed that he wanted to have both a good day and night. Took Thorazine 100mg po prn & Klonopin 1mg po prn for agitation. Pt showered, dressed, listening to music in the Rec therapy room. He was noted to take a short cat nap during the day. Thought content delusional with bizarre themes.
[2017-07-13 15:00] VITALS: BP 122/81; PULSE 100; RESP 15
--- NOTE | 2017-07-13 15:59 | PCM.PNPSY ---
Subjective Date of Service Jul 13, 2017 Subjective Patient irritable last night but less than previous nights. Today he reports " I am T. P. - Top shape. I am just a generational person. I believe an generosity, naturalism; I am a gentleman's gentleman." Patient remains easily distracted and is currently worried about his middle brother who is 38 and reportedly homeless in [place] with mental illness and substance use issues. His older half brother is in his 40s and is an electric vehicle electrician. His 24-year-old sister is a massage therapist and is doing well. He denies side effects to medications and reports that as needed Thorazine and clonazepam have been helpful with his thoughts and mood. Sleep: 2.75 hours Appetite: Good Suicidal and homicidal ideation: Denies Auditory hallucinations: Denies Visual hallucinations: Denies Other Psychotic Symptoms: Disorganized rambling paranoid at times Anxiety: "I feel like $1 million." Depression: "I am worried about my brother." Current Medications Current Medications Chlorpromazine 100MG PO HS PRN FOR INSOMN... HS PRN PO Last administered on 07/13 00:21; Admin Dose 100 MG; Start 07/12/17 at 01:05 Chlorpromazine Chlorpromazine 50-100mg po qid ... QID PRN PO Last administered on 07/13/17 14:06; Admin Dose 100 MG; Start 07/13/17 at 09:45 Mental Status Exam Vital Signs Vital Signs Date Time Temp Pulse Resp B/P Pulse Ox O2 Delivery O2 Flow Rate FiO2 07/13/17 15:00 36.2 100 15 122/81 Appearance: Neat/well groomed Attitude: Cooperative, Guarded Behavior: Other (sedated appearing) Affect: Blunted Mood: Anxious Thought Process/Associations: Circumstantial, Clanging associations Speech Production: Normal Speech Rate: Normal Speech Articulation: Other (mild dysarthria) Thought Content: Perseveration, Other Danger to Self/Suicidal Ideati: None Danger to Others: None Hallucinations: Auditory (Denies), Visual (Denies) Consciousness: Somnolent Orientation: Person, Place, Situation Memory: Short Term Memory (Impaired) Estimate Intellectual Function: Average Basis for IQ estimate: Word use/vocabulary, Educational history, Employment history Attention/Concentration & Cogn: Impaired Insight: Limited Judgement: Limited Mental Health Plan The patient is a 36-year-old male who has been staying at [facility] for substance use treatment. Reportedly the patient has a history of heroin use disorder, schizophrenia, bipolar disorder, and two previous hospitalizations on the psychiatric unit at [facility]. He required a large amount of neuroleptics and sedatives to calm in the ED. by report, he is showed gradual and steady improvement with social interactions and ADLs since hospitalization. Due to irritability, Depakote ER was increased to 500 mg daily and 1000 mg nightly and Risperdal was increased to 2 mg daily and 4 mg at bedtime. The patient was agitated last night and received Thorazine and reported it was somewhat helpful and he slept better. He continues to be more organized and appropriate during the day and less so at night. We discussed increasing his evening Risperdal, as needed Thorazine, and to schedule his zolpidem. The patient was agreeable with this plan. [place] AXIS I 1. Psychotic disorder unspecified versus schizophrenia 2. Bipolar disorder by report AXIS II deferred AXIS III None acute. AXIS IV Unknown. AXIS V Current global assessment of functioning equal to 30 Medications Depakote ER 500 mg daily and 1000 mg nightly Risperidone 2 mg daily and 6 mg nightly Chlorpromazine 50-100 mg 4 times daily as needed for severe agitation Chlorpromazine 100 mg to 200 mg nightly as needed for insomnia Zolpidem 10 mg nightly Acyclovir 400 mg twice daily Clonazepam 1 mg every 6 hours as needed for anxiety or agitation Hydroxyzine 50 mg every 4 hours as needed for anxiety or agitation Treatments 1. The patient is admitted to the inpatient unit and will be provided a safe and secure environment. 2. The patient is denying current active suicidality and is not in need of a one-to-one at this time. 3. The patient is encouraged to participate with group and milieu activities. 4. The patient will be seen by the treatment team on a daily basis to assess symptoms, side effects and response to treatment. 5. Schedule zolpidem 10 mg nightly and encouraged patient to be active during the day. 6. Increase Thorazine to 50-100 mg 4 times daily with at bedtime 100-200 mg 7. Increase risperidone to 2 mg daily and 6 mg nightly 8. Check Depakote level on 07/14/17 9. Anticipated length of stay is 7-10 days. 10. 1:1 in the evening due to inappropriate behavior in the evenings Attending Statement Information regarding agencies is below: [facility] Address: [address] [place] [address] [place] [address] [place] [id number] [email or web address] [facility] Address: [address] [place] [id number] [email or web address] Seamus Brizuela MD Jul 13, 2017 15:58
--- NOTE | 2017-07-13 16:16 | NUR ---
Observations [id number] Pt more agitated in morning hours, focused on court- changing clothing a few times and wanting to look "presentable." Pt became angry when told her was not able to take a second shower until after court. Pt went to room, slammed door three times. When this keno writer asked him how he was doing, pt stated "I'm fine now." Pt was able to be redirected. Pt requested to listen to music in the group room for much of the day which it appears is therapeutic for him. He also did yoga and stretching. Pt attended all meals, eating 100%. He was observed every 15 minutes of shift as directed.
--- NOTE | 2017-07-13 17:46 | NUR ---
Php Engineer/Counselor S:"I feel like a million bucks." O: Patient denies any SI or HI, no AVH, no anxiety or depression. A: Patient is tangential and nonsensical. He has been in the group room listening to music and writing down lyrics. Patient has been friendly and cooperative. P: Follow care plan and coordinate with outpatient provider.
--- NOTE | 2017-07-13 20:29 | NUR ---
nursing note 3-11pm S)"are you working on racial unity? can I have new undies?" O) pt paces at times, goes to group room and talks to unseen persons, has intense manner but pleasant on approach, took all medications without difficulty, has 1:1 this evening for safety and intrusiveness, ate snacks and meals A) cooperative with medication, poor impulse control and intrusive to peers, appears anxious at time with medication keeping patient under behavior control P) monitor with 1:1 though night, encourage participation in treatment
--- NOTE | 2017-07-14 06:17 | NUR ---
Nursing Note Delivery Manager 11pm-7am Patient had male 1:1 on shift supervisor melting due to danger to others, threatening staff and peers, difficulty in redirection by staff previous two nights. Patient stayed in his room much of the night, out to dining room intermittently, but was easily redirected back to room by staff. Patient requested medications and was given prn clonazepam 1 mg PO and prn thorazine 100mg PO at 0109 with good effect. Patient returned to room and remains asleep at current time with 6+ hours. Pt monitored q 15 minutes for safety, location and accountability.
[2017-07-14] MEDS: risperiDONE 2 mg Tablet PO SCH ×2 (08:26→20:32)
[2017-07-14] MEDS: Acyclovir 400 mg Tablet PO SCH ×2 (08:26→20:31)
[2017-07-14] MEDS: Divalproex (QD) 500 mg ER24 Tablet PO SCH ×2 (08:26→20:30)
[2017-07-14 10:09] LABS: BASOPHILS % (AUTO) 0.2 % (0-3); EOSINOPHILS % (AUTO) 2.4 % (0-5); MONOCYTES % (AUTO) 10.4 % (4-12); Mean Corpuscular Volume 93.3 fL (81-100); NEUTROPHILS % (AUTO) 67.9 % (40-74); Platelet Count 296 bil/L (150-400)
--- NOTE | 2017-07-14 10:59 | NUR ---
Nursing 7a-3p Pt reported to this staff member that his night went well and that the Thorazine has been helpful. He stated "I am a perfect gentleman." Pt pleasant, polite and cooperative with care. Spending time in the recreational group room listening to music and coloring. Addendum: 07/14/17 at 1246 by ELDON BARRERA RN Pt requested and received Thorazine 100mg po prn and Clonazepam 1mg po prn for felt anxiety/agitation @ 1230.
[2017-07-14 11:35] VITALS: BP 112/67; PULSE 131; RESP 16
--- NOTE | 2017-07-14 18:16 | NUR ---
[facility] Day Shift Pt maintained behavioral control throughout the shift. Pt affect appears bright in the AM and early afternoon, flatter in the late afternoon and evening. Pt spends most of the shift pacing the unit, engaging in unit activities. Pt is appropriate and pleasant with staff in the AM and afternoon, but becomes increasingly avoidant and vigilant in the evening. Pt speech becomes somewhat more disorganized in the evening. Pt attended community meeting in the AM and has attended all group activities throughout the shift.
[2017-07-14] MEDS ORDERED: risperiDONE 1 mg Tablet ONE (20:24)
--- NOTE | 2017-07-14 22:35 | PCM.PNPSY ---
Subjective Date of Service Jul 14, 2017 Subjective The patient slept better last night and was less irritable. He reports today that he feels much better after medication changes. Patient concerned about belongings at [facility] and became somewhat irritable when it was explained that we may not have staff to go there to pick them up. Patient spent much of the day interacting with peers, using the craft room. No side effect complaints Sleep: 6+ hours Appetite: Good Suicidal and homicidal ideation: denies Auditory hallucinations:denies Visual hallucinations: denies Other Psychotic Symptoms: paranoia, disorganization Anxiety: denies Depression: denies Current Medications Current Medications Chlorpromazine Chlorpromazine 50-100mg po qid ... QID PRN PO Last administered on 07/14/17 12:31; Admin Dose 100 MG; Start 07/13/17 at 09:45 Clonazepam 1 mg 16,21 PO Last administered on 07/14/17 16:08; Admin Dose 1 MG; Start 07/14/17 at 16:00 Risperidone 6 mg HS PO Last administered on 07/13/17 20:36; Admin Dose 6 MG; Start 07/13/17 at 21:00 Zolpidem Tartrate 5-10MG HS PO Last administered on 07/13/17 20:36; Admin Dose 10 MG; Start 07/13/17 at 21:00 Mental Status Exam Vital Signs Vital Signs Date Time Temp Pulse Resp B/P Pulse Ox O2 Delivery O2 Flow Rate FiO2 07/14/17 11:35 35.9 131 16 112/67 Appearance: Neat/well groomed Attitude: Cooperative, Guarded Behavior: Other (sedated appearing) Affect: Restricted Mood: Anxious Thought Process/Associations: Tangential, Circumstantial Speech Production: Normal Speech Rate: Normal Speech Articulation: Other (mild dysarthria) Thought Content: Perseveration, Other Danger to Self/Suicidal Ideati: None Danger to Others: None Hallucinations: Auditory (Denies), Visual (Denies) Consciousness: Somnolent Orientation: Person, Place, Situation Memory: Short Term Memory (Impaired) Estimate Intellectual Function: Average Basis for IQ estimate: Word use/vocabulary, Educational history, Employment history Attention/Concentration & Cogn: Impaired Insight: Limited Judgement: Limited Result Diagram: 07/14/1745 9/6/17 0845 Mental Health Plan The patient is a 36-year-old male who has been staying at [facility] for substance use treatment. Reportedly the patient has a history of heroin use disorder, schizophrenia, bipolar disorder, and two previous hospitalizations on the psychiatric unit at [facility]. He required a large amount of neuroleptics and sedatives to calm in the ED. by report, he is showed gradual and steady improvement with social interactions and ADLs since hospitalization. The patient appears to have responded to scheduled chlorpromazine and clonazepam last night with improved sleep, decreased irritability and paranoia. Discussed needing to determine outpatient discharge plan when closer to discharge. Depakote level only 62, will increase depakote. [place] AXIS I 1. Psychotic disorder unspecified versus schizophrenia 2. Bipolar disorder by report AXIS II deferred AXIS III None acute. AXIS IV Unknown. AXIS V Current global assessment of functioning equal to 30 Medications Depakote 1000mg po bid Risperidone 2 mg daily and 6 mg nightly Chlorpromazine 50-100 mg 4 times daily as needed for severe agitation Chlorpromazine 100 mg to 200 mg nightly as needed for insomnia Zolpidem 10 mg nightly Acyclovir 400 mg twice daily Clonazepam 1 mg every 6 hours as needed for anxiety or agitation Hydroxyzine 50 mg every 4 hours as needed for anxiety or agitation Treatments 1. The patient is admitted to the inpatient unit and will be provided a safe and secure environment. 2. The patient is denying current active suicidality and is not in need of a one-to-one at this time. 3. The patient is encouraged to participate with group and milieu activities. 4. The patient will be seen by the treatment team on a daily basis to assess symptoms, side effects and response to treatment. 5. Schedule zolpidem 10 mg nightly and encouraged patient to be active during the day. 6. Increase Thorazine to 50-100 mg 4 times daily with at bedtime 100-200 mg 7. Increase risperidone to 2 mg daily and 6 mg nightly 8. Increase depakote to 1000mg po bid 9. Anticipated length of stay is 7-10 days. 10. Likely will not require 1:1 tonight. Seamus Brizuela MD Jul 14, 2017 16:28
[2017-07-14] MEDS: hydrOXYzine Pamoate 25 mg Capsule PO PRN (22:49)
--- NOTE | 2017-07-14 22:50 | NUR ---
Nurses PRN Patient up and pacing the unit stating he can't sleep,received Klonopin 1mg and Hydroxyzine 50mg for restlessness and sleep,site head to assess response.
--- NOTE | 2017-07-14 23:09 | NUR ---
Nurses Note Evening Overall patient has been slowly improving in thought content and behaviors. He remains medication compliant. Patient has had no outbursts or threatening behaviors towards peers and focuses on listening to music and writing. Will continue q 15min checks for safety and support. Addendum: 07/14/17 at 2316 by YOLANDA CROWDER RN Amended: Links added.
--- NOTE | 2017-07-15 04:10 | NUR ---
nursing, nights, 11-7 s- can i have something to get back to sleep ? can i have lemonade ? i want the tv on. now. the news. now. that was thoughtful. i want my money back. i want the land back. can i have klonopin ? some more water ? i want coffee now. carmelo zavala, can i have a lozenge ? o- has appeared to sleep 2330-midnight and [id number]. alternates between his room, bed and the dinning room. has flashes of anger but is able to regain control. has received repeat 5 mg of ambien and nicorette lozenge at 0010, repeat 100 mg of thorazine at 0210. 1 mg of klonopin at 0425. is currently lying in bed. assessed q 15 minutes. a- inadequate sleep, internally preoccupied, disorganized, hostile and threatening at times, sedated but still restless. p- monitor behavior/emotional state, quality, times and amount of sleep, use and effect of medication. lonnie
[2017-07-15] MEDS: Benzocaine-Menthol Lozenge 2/Pkg PO PRN (04:25)
[2017-07-15] MEDS: risperiDONE 2 mg Tablet PO SCH (08:06)
[2017-07-15] MEDS: Acyclovir 400 mg Tablet PO SCH ×2 (08:06→20:20)
[2017-07-15] MEDS: Divalproex (QD) 500 mg ER24 Tablet PO SCH ×2 (08:06→20:19)
[2017-07-15] MEDS: hydrOXYzine Pamoate 25 mg Capsule PO PRN (08:09)
[2017-07-15 11:13] VITALS: BP 108/72; PULSE 110; RESP 16
--- NOTE | 2017-07-15 11:18 | NUR ---
Nursing Day Pt anxious and agitated this morning he received Vistaril 50mg po prn @ 0809 with minimal effect. Later pt began to angrily demand his belongings from N. He was able to calm with staff redirection. He received Thorazine 100mg po prn & Klonopin 1mg po prn @ 0923 with good effect. Pt calmer and took a 45 minute nap. Prior to his taking his nap he asked a female peer to "watch over the world while he slept". He expressed that he can't sleep because he is responsible for the world. Pt able to maintain behavioral control. Currently pt listening to music in group room.
--- NOTE | 2017-07-15 16:22 | PCM.PNPSY ---
Subjective Date of Service Jul 15, 2017 Subjective The patient's was more agitated last night and reports today "my whole life has been rough...Okay now... I just do not do well with orders [from others]. I wanted to take a shower and they would not let me." When the patient appeared somnolent and was asked about this he stated, "I feel wide-awake. There are 7 billion people in the world why cannot really make a difference?" The patient added "there is an omen, I have to break a hex by DMX... I slip and I fall and I can't get up." The patient was also fixated on [facility]. The patient denied side effects to appear to be white somnolent. Sleep: 1.25 hours Appetite: "Very well" Suicidal and homicidal ideation: Denies Auditory hallucinations: Denies Visual hallucinations: Denies Other Psychotic Symptoms: Disorganization and paranoia as above. Anxiety: "It is at an all time low." Depression: Denies Current Medications Current Medications Benztropine Mesylate 1 mg BID PO Last administered on 07/15/17 13:58; Admin Dose 1 MG; Start 07/15/17 at 13:05 Chlorpromazine 100 mg HS PO Last administered on 07/15/17 02:13; Admin Dose 100 MG; Start 07/14/17 at 21:00 Clonazepam 1 mg 16,21 PO Last administered on 07/15/17 16:10; Admin Dose 1 MG; Start 07/14/17 at 16:00 Divalproex Sodium 1,000 mg DAILY PO Last administered on 07/15/17 08:06; Admin Dose 1,000 MG; Start 07/15/17 at 08:30 Risperidone 6 mg HS PO Last administered on 07/14/17 20:32; Admin Dose 6 MG; Start 07/13/17 at 21:00; Stop 07/15/17 at 13:05; Status DC Zolpidem Tartrate 5-10MG HS PO Last administered on 07/15/17 00:11; Admin Dose 5 MG; Start 07/13/17 at 21:00 Mental Status Exam Vital Signs Vital Signs Date Time Temp Pulse Resp B/P Pulse Ox O2 Delivery O2 Flow Rate FiO2 07/15/17 11:13 36.3 110 16 108/72 Appearance: Neat/well groomed Attitude: Cooperative, Guarded Behavior: Other (sedated appearing) Affect: Restricted Mood: Anxious Thought Process/Associations: Tangential, Circumstantial Speech Production: Normal Speech Rate: Normal Speech Articulation: Other (mild dysarthria) Thought Content: Perseveration, Other Danger to Self/Suicidal Ideati: None Danger to Others: None Hallucinations: Auditory (Denies), Visual (Denies) Consciousness: Somnolent Orientation: Person, Place, Situation Memory: Short Term Memory (Impaired) Estimate Intellectual Function: Average Basis for IQ estimate: Word use/vocabulary, Educational history, Employment history Attention/Concentration & Cogn: Impaired Insight: Limited Judgement: Limited Result Diagram: 07/14/1745 07/14/17844 Mental Health Plan The patient is a 36-year-old male who has been staying at [facility] for substance use treatment. Reportedly the patient has a history of heroin use disorder, schizophrenia, bipolar disorder, and two previous hospitalizations on the psychiatric unit at [facility]. He required a large amount of neuroleptics and sedatives to calm in the ED. By report, he has showed gradual and steady improvement with social interactions and ADLs since hospitalization. The patient did not sleep as well as last night and may have an axis of neuroleptic at this time with the addition of chlorpromazine. Discussed needing to determine outpatient discharge plan when closer to discharge. We will reduce risperidone at bedtime due to increase of chlorpromazine. [place] AXIS I 1. Psychotic disorder unspecified versus schizophrenia 2. Bipolar disorder by report AXIS II deferred AXIS III None acute. AXIS IV Unknown. AXIS V Current global assessment of functioning equal to 30 Medications Depakote 1000mg po bid Risperidone 2 mg daily and 4 mg nightly Chlorpromazine 50-100 mg 4 times daily as needed for severe agitation Chlorpromazine 100 mg to 200 mg nightly as needed for insomnia Zolpidem 10 mg nightly Acyclovir 400 mg twice daily Clonazepam 1 mg every 6 hours as needed for anxiety or agitation Hydroxyzine 50 mg every 4 hours as needed for anxiety or agitation Treatments 1. The patient is admitted to the inpatient unit and will be provided a safe and secure environment. 2. The patient is denying current active suicidality and is not in need of a one-to-one at this time. 3. The patient is encouraged to participate with group and milieu activities. 4. The patient will be seen by the treatment team on a daily basis to assess symptoms, side effects and response to treatment. 5. Schedule zolpidem 10 mg nightly and encouraged patient to be active during the day. 6. Continue Thorazine 50-100 mg 4 times daily with at bedtime 100-200 mg 7. Reduce risperidone to 2 mg daily and 4 mg nightly 8. Continue depakote 1000mg po bid 9. Anticipated length of stay is 7-10 days. 10. Likely will not require 1:1 tonight. Seamus Brizuela MD Jul 15, 2017 16:22
--- NOTE | 2017-07-15 17:05 | NUR ---
PRN's 0809 Vistaril 50 mg for agitation. Minimal reduction in behavior. 0923 Klonopin 1 mg for agitation. Minimal reduction in behavior. 0923 Thorazine 100 mg for agitation. Minimal reduction in behavior.
--- NOTE | 2017-07-15 17:46 | NUR ---
Observations [id number] Pt appeared very pressured and agitated today. Focus for him was listening to music in the group room and writing. Pt did nap for a short period of time during the afternoon. Pt observed to be drooling and struggling with speech at times. Pt changed clothing throughout the day. He became very angry at times with staff when told no or asked to follow instructions. Pt attended all meals, eating 100%. He was observed every 15 minutes of shift as directed.
--- NOTE | 2017-07-15 18:33 | NUR ---
Nurses Note Evening Patient has been preoccupied with inner stimuli. He has an underlying agitation at times. Patient has not been sleeping well,last night for 3 hours only. His medications have been resulting in psychomotor retardation but have not affected his ability to sleep. Will redirect,reality test as tolerated and encourage relaxation techniques if receptive.Continue q 15min. checks for safety. Addendum: 07/15/17 at 1841 by MARGARITA HOPSON RN Amended: Links added.
--- NOTE | 2017-07-15 18:47 | NUR ---
Mammalogist/Counselor: S: "I don't want to mess up my chances." O: Patient only slept 1.25 hours last night per staff. Patient denies S/I and H/I. He also denies auditory and visual hallucinations. Depression is 0/10 and anxiety is 0/10. Patient went on to state, "I want to save the world from racism and prejudice. I want to save the world from anger. Somebody put a hex on me. I'm slipping and falling and I can't get up. DMX put a hex on me." A: Patient is cooperative, euphoric, dysthymic, unpredictable, religiously preoccupied, no insight, limited judgment. P: Follow the care plan, coordinate with out-patient providers, monitor behavior.
[2017-07-15] MEDS ORDERED: risperiDONE 2 mg Tablet PO SCH (21:00)
[2017-07-15] MEDS: Alum-Mag Hydrox-Simeth 30 mL Suspension PO PRN (21:34)
[2017-07-16] MEDS: hydrOXYzine Pamoate 25 mg Capsule PO PRN ×3 (01:46→22:57)
--- NOTE | 2017-07-16 03:25 | NUR ---
nursing, nights, 11-7 s- can i take a shower ? i shit myself. ready to leave. tomorrow ? it's nice to have a home. i worked for [employer]. can i weigh myself. i want a victory. a massive one. big. big. now. i need something. can i have a shower. can i have some light for the puzzle. thank you for washing my clothes. o- came to staff at 2345. took a shower and received clean clothing. alternates between his room, the dinning room and trying to interact with staff and making special requests. has received 1 mg of klonopin at 0002, vistaril 50 mg at 0146, thorazine 100mg at 0235. assessed q 15 minutes. a- inadequate sleep, internally preoccupied, episodes of anger/frustration but is able to regain control, responds well to staff support. less sedated then yesterday. no apparent physical distress. p- monitor behavior/emotional state, quality, times and amount of sleep, use and effect of medication. lonnie
[2017-07-16] MEDS: Divalproex (QD) 500 mg ER24 Tablet PO SCH ×2 (08:37→21:22)
[2017-07-16] MEDS: risperiDONE 2 mg Tablet PO SCH (08:38)
[2017-07-16] MEDS: Acyclovir 400 mg Tablet PO SCH ×2 (08:38→21:29)
--- NOTE | 2017-07-16 14:45 | NUR ---
Nursing Days Pt presents as more pressured and irritable. He became upset with a male peer but was able to calm. He has laid down and catnapped briefly x 2. He has received available prn medication as he requests it but it has had minimal effect. He has made several phone calls to [facility] today requesting his belongings. He has maintained on the unit listening to music and writing. Continue to monitor behavior and thought process. Provide support as needed.
[2017-07-16] MEDS: Alum-Mag Hydrox-Simeth 30 mL Suspension PO PRN (15:47)
--- NOTE | 2017-07-16 18:22 | NUR ---
NURSING NOTE [id number] Mood: "exuberant... optimistic" Affect: blunted, disorganized, pleasant in conversation Behavior: pt. pacing the halls off and on, making frequent requests of staff to have his belongings from [facility] brought to him, writing [id number] notes in his room, med compliant. Mild drooling. Thought processes: pt. rambling, tangential, delusional, grandiose: "There's 7 billion people on earth, and I've been given the gift to tell others how to get better, to spread the word, I'm the [place] spreading its wings on earth". Pt. denies AH/VH/SI.
--- NOTE | 2017-07-16 18:23 | NUR ---
[facility] Day Shift Pt appears more sedated and irritable than noted on previous shift, though pt has been able to maintain behavioral control. Pt affect appears mostly flat, brighter when engaged with staff and peers. Pt occasionally displays poor boundaries with staff and peers and requires redirection. Pt spends most of the shift pacing the unit, engaging in unit activities, and interacting with staff and peers. Pt is mostly appropriate with staff and peers when active on the unit, though occasionally requires redirection from inappropriate behavior (pt is not mindful of proximal boundaries). Pt attended community meeting and all group activities throughout the shift. Pt attended all meals and ate approx 90% of all meals.
[2017-07-16 19:02] VITALS: BP 120/78; PULSE 86; RESP 16
--- NOTE | 2017-07-16 19:33 | NUR ---
Financial Developer/Counselor: S: "It's natural when you're under sedation. I'm fighting until I get the victory." O: Patient slept 0 hours last night per staff. Patient denies S/I and H/I. He also denies auditory and visual hallucinations. Depression is 0/10 and anxiety is 0/10. When asked his mood, patient stated, "I feel like a million dollars." Patient went on to state, "Where's the stella pill? My tranquility transcends to a better man everyday. What is the whole world was after you like Sanna Pedroza?" A: Patient is cooperative, euphoric, dysthymic, unpredictable, delirious, paranoid, suspicious, lethargic, religiously preoccupied, no insight, no judgment. P: Follow the care plan, coordinate with out-patient providers, monitor behavior.
--- NOTE | 2017-07-16 23:29 | PCM.PNPSY ---
Subjective Date of Service Jul 16, 2017 Subjective Patient received no sleep by report last night. Despite significant use of medication, patient did not sleep and today was somnolent and fixated on having belongings brought from [facility]. He was somewhat menacing at times , but was not directly threatening. He stated today that he has "composure and posturals. I'm not a racist or a bigot. I'm the best man." Patient reports sialorrhea and sedation as side effects. Sleep: none Appetite: eating well Suicidal and homicidal ideation: denies Auditory hallucinations: denies Visual hallucinations: denies Other Psychotic Symptoms: as above, Anxiety: denies Depression: denies Current Medications Current Medications Benztropine Mesylate 1 mg BID PO Last administered on 07/16/17 08:38; Admin Dose 1 MG; Start 07/15/17 at 13:05 Chlorpromazine 100 mg HS PO Last administered on 07/15/17 02:13; Admin Dose 100 MG; Start 07/14/17 at 21:00; Stop 07/16/17 at 16:53; Status DC Divalproex Sodium 1,000 mg DAILY PO Last administered on 07/16/17 08:37; Admin Dose 1,000 MG; Start 07/15/17 at 08:30 Risperidone 4 mg HS PO Last administered on 07/15/17 20:20; Admin Dose 4 MG; Start 07/15/17 at 21:00; Stop 07/16/17 at 15:02; Status DC Mental Status Exam Appearance: Neat/well groomed Attitude: Guarded, Other (somewhat menacing) Behavior: Other (sedated appearing) Affect: Restricted Mood: Irritable, Anxious Thought Process/Associations: Tangential, Circumstantial Speech Production: Paucity Speech Rate: Lags/Latency Speech Articulation: Other (mild dysarthria) Thought Content: Perseveration, Other Danger to Self/Suicidal Ideati: None Danger to Others: None Hallucinations: Auditory (Denies), Visual (Denies) Consciousness: Somnolent Orientation: Person, Place, Situation Memory: Short Term Memory (Impaired) Estimate Intellectual Function: Average Basis for IQ estimate: Word use/vocabulary, Educational history, Employment history Attention/Concentration & Cogn: Impaired Insight: Limited Judgement: Limited Result Diagram: 07/14/1784407/14/17844 Mental Health Plan The patient is a 36-year-old male who has been staying at [facility] for substance use treatment. Reportedly the patient has a history of heroin use disorder, schizophrenia, bipolar disorder, and two previous hospitalizations on the psychiatric unit at [facility]. He required a large amount of neuroleptics and sedatives to calm in the ED. By report, he has showed gradual and steady improvement with social interactions and ADLs since hospitalization. The patient did not sleep as well as last night and may have an excess of neuroleptic at this time with the addition of chlorpromazine. It is also possible that risperidone is ineffective. In the ER he was also treated with haloperidol and olanzapine. As fairly high dose rispedal has had little effect , switch to haloperidol or olanzapine may yield better efficacy. Discussed needing to determine outpatient discharge plan when closer to discharge but patient became irritable. [place] AXIS I 1. Psychotic disorder unspecified versus schizophrenia 2. Bipolar disorder by report AXIS II deferred AXIS III None acute. AXIS IV Unknown. AXIS V Current global assessment of functioning equal to 30 Medications Depakote 1000mg po bid Haloperidol 10mg po bid Chlorpromazine 50-100 mg 4 times daily as needed for severe agitation Temazepam 30mg nightly Clonazepam 1 bid and 1 mg every 6 hours as needed for anxiety or agitation Hydroxyzine 50 mg every 4 hours as needed for anxiety or agitation Acyclovir 400 mg twice daily Treatments 1. The patient is admitted to the inpatient unit and will be provided a safe and secure environment. 2. The patient is denying current active suicidality and is not in need of a one-to-one at this time. 3. The patient is encouraged to participate with group and milieu activities. 4. The patient will be seen by the treatment team on a daily basis to assess symptoms, side effects and response to treatment. 5. Schedule temazepam 30 mg nightly and encouraged patient to be active during the day. 6. Continue Thorazine 50-100 mg 4 times daily and discontinue bedtime 100-200 mg 7. Discontinue risperidone 8. Haloperidol 10mg po bid 9. VPA, CBC, CMP on 07/19/17 10. Anticipated length of stay is 7-10 days. Seamus Brizuela MD Jul 16, 2017 16:59
--- NOTE | 2017-07-17 05:02 | NUR ---
NURSE NIGHT NOTE [id number]: Pt was up most of the shift, sleeping very little, in short segments. Pt appeared drowsy with slurred speech and drooled a little, improved from previous night. Pt had clear thought to speak to staff, sometimes requesting day activities, but easily redirected. Pt was given relaxation options through the night with a little, but short-lived results of sleep. Pt monitored q15 minutes for location, safety and accountability.
[2017-07-17] MEDS: Acyclovir 400 mg Tablet PO SCH ×2 (08:32→20:09)
[2017-07-17] MEDS: Divalproex (QD) 500 mg ER24 Tablet PO SCH ×2 (08:32→20:09)
--- NOTE | 2017-07-17 14:08 | NUR ---
NURSE NOTE DAY Mood: "I'm superman." Denies depression, anxiety. Affect: Blunted. Threatening at times. Behavior: Disorganized. Redirectable. Continues to call [facility] to request belonging despite staff redirection. Thought Content/Process: "Nurse, you don't understand! If you knew the things they did up at [facility] . . ." Linear, linked. Vaguely paranoid. Denies SI, HI. Denies AH, VH. PRN/NURS Notes: Drooling, slurring speech. Dr. Brizuela DCed HS chlorpromazine. Continue to monitor.
--- NOTE | 2017-07-17 14:47 | PCM.PNPSY ---
Subjective Date of Service Jul 17, 2017 Subjective I spent 30 minutes both reviewing treatment plan with our clinical team, interviewing the patient and providing supportive/educational psychotherapy. I spent more than 50% of the time counseling the patient. I reviewed the treatment plan with the him and discussed options available including the potential risks, benefits and side effects. Chris reports continued improvement in thought organization and mood stability. Staff reports that he has been active and participating well in one-to-one unit and group activities. He slept only 4 hours but denies depression manic or psychotic symptoms review. He has been more communicative and is not expressing psychotic thought. He is acting in a socially appropriate manner except for being sedated and that he continues to have an op intensity that is demonstrated in his eye gazing, his speech and his ideas. He denies medication side effects. He was able to identify his medications and what they were used to treat. Current Medications Current Medications Haloperidol 10 mg BID PO Last administered on 07/17/17 09:02; Admin Dose 10 MG; Start 07/16/17 at 20:30 Risperidone 4 mg HS PO Last administered on 07/15/17 20:20; Admin Dose 4 MG; Start 07/15/17 at 21:00; Stop 07/16/17 at 15:02; Status DC Temazepam 30 mg HS PO Last administered on 07/16/17 21:24; Admin Dose 30 MG; Start 07/16/17 at 21:00 Mental Status Exam Appearance: Neat/well groomed Attitude: Guarded, Other (somewhat menacing) Behavior: Other (sedated appearing) Affect: Restricted Mood: Irritable, Anxious Thought Process/Associations: Tangential, Circumstantial Speech Production: Paucity Speech Rate: Lags/Latency Speech Articulation: Other (mild dysarthria) Thought Content: Perseveration, Other Danger to Self/Suicidal Ideati: None Danger to Others: None Consciousness: Somnolent Orientation: Person, Place, Situation Memory: Short Term Memory (Impaired) Estimate Intellectual Function: Average Basis for IQ estimate: Word use/vocabulary, Educational history, Employment history Attention/Concentration & Cogn: Impaired Insight: Limited Judgement: Limited Result Diagram: 07/14/17 0845 07/14/17 0845 Mental Health Plan The patient is a 36-year-old male who has been staying at the [facility] trying to recover from previous substance abuse. There is a report that he has been a heroin addict as well as having schizophrenia, bipolar disorder, and two previous hospitalizations on the psychiatric unit at [facility]. I believe that Chris is recovering from an acute manic episode. He is currently contained but I believe he needs an additional week of treatment. [place] AXIS I 1. Psychotic disorder unspecified versus schizophrenia 2. Bipolar disorder by report AXIS II deferred AXIS III None acute. AXIS IV Unknown. AXIS V Current global assessment of functioning equal to 35 Treatments Patient is being provided with a high degree of safety through our unit structure and active adult engagement provided by our mental health professionals, mental health technicians, psychiatric nurses and myself. We are focusing on developing improved coping skills and identifying stressors that may have led to current episode. We will attempt to: * Integrate into therapeutic groups, milieu and individual therapy. * Maintain in a closely monitored and structured unit * Provide low-stimulation environment * Obtain collateral data to assist in treatment planning * Assess degree of lability of affect and impulse control * Complete safety plan * Decrease frequency of relapse and need for re-hospitalization * Denies thoughts of harm to self and/or others * Establish a consistent sleep pattern * Medication effective in stabilization of mood and/or thought process * Reduce the risk of imminent harm to self and/or others by providing a safe environment * Tolerates medication without side effects * Patient will be on the following psychiatric medications: Depakote 1000mg po bid Haloperidol 10mg po bid Chlorpromazine 50-100 mg 4 times daily as needed for severe agitation Temazepam 30mg nightly Clonazepam 1 bid and 1 mg Labs:VPA, CBC, CMP on 07/19/17 Education: Educate patient about recreational drug use as an etiology Patient's legal status Patient is on a 14 day involuntary treatment hold. Patient will be given the opportunity to talk to her blindstitch lapel padder and the spooler operator Anticipated number of hospital days to achieve above goals: 5 Disposition: [facility] Mio Glez MD Jul 17, 2017 14:47
[2017-07-17 16:24] VITALS: BP 125/75; PULSE 75; RESP 18
--- NOTE | 2017-07-17 18:15 | NUR ---
Tonger/Counselor S:"I feel revived, rejuvenated, restored!" O: Patient denies any SI or HI, no AVH, no anxiety or depression. A: Patient participated in group and has been out on the unit for the majority of the day. Patient is cooperative, euphoric, dysthymic, unpredictable, delirious,no insight, no judgment. P:Follow care plan and coordinate with outpatient providers.
--- NOTE | 2017-07-17 18:24 | NUR ---
[facility] Day Shift Pt maintained behavioral control throughout the shift. Pt affect appears flat, blunt, somewhat brighter when engaged with staff and peers. Pt continues to display poor boundaries, but remains redirectable. Pt speech is somewhat slurred/difficult to understand. Pt spends most of the shift resting in his room, pacing the unit, engaging in unit activities, and attempting to interact with staff and peers. Pt attended community meeting in the AM and passively attended group activities throughout the shift. Pt attended all meals and ate approx 90% of all meals.
--- NOTE | 2017-07-17 21:24 | NUR ---
NURSING NOTE [id number] Mood: "positive, joyful" Affect: blunted, calm, cooperative Behavior: more isolative than evening prior but visible off and on throughout the shift, making less requests of staff, med compliant, no behavioral outbursts or inappropriate phone calls. Thought processes: denies AH/VH/SI/HI. His mood statements are incongruent w/his affect, disorganized at times, able to express his needs, continues to lack insight into his condition.
[2017-07-17] MEDS: hydrOXYzine Pamoate 25 mg Capsule PO PRN (22:15)
--- NOTE | 2017-07-18 06:12 | NUR ---
Nursing Note Lead Refiner 11pm-7am Patient was in bed at start of shift. He was noted to be asleep from 2100 to 2215. He awoke and requested coffee and a shower at 0300, was easily redirected back to his room by staff. He was noted to be asleep from 0330 to 0430. Awoke and pacing hallway at 0430 and again requesting coffee and shower. Continued to pace hallway with fists clenched and visibly agitated. Patient was given prn clonazepam 1 mg PO at 0501 with no effect. He returned to his room briefly with redirection by staff. Patient continued to come out of room and pace hallway and make demands to staff, such as coffee, shower, and phone, stating "I want what I want." Staff was able to redirect patient, who calmed down and remained in dining room writing on his pad of paper. Patient slept 5.25 hours. Pt monitored q 15 minutes for safety, location and accountability.
[2017-07-18] MEDS: Acyclovir 400 mg Tablet PO SCH ×2 (07:43→20:19)
[2017-07-18] MEDS: Divalproex (QD) 500 mg ER24 Tablet PO SCH ×2 (07:43→20:17)
[2017-07-18] MEDS: Benzocaine-Menthol Lozenge 2/Pkg PO PRN (09:36)
--- NOTE | 2017-07-18 14:05 | PCM.PNPSY ---
Subjective Date of Service Jul 18, 2017 Subjective I spent 30 minutes both reviewing treatment plan with our clinical team, interviewing the patient and providing supportive/educational psychotherapy. I spent more than 50% of the time counseling the patient. I reviewed the treatment plan with the him and discussed options available including the potential risks, benefits and side effects. Chris reports continued improvement in thought organization and mood stability. Staff reports that he has been active and participating well in one-to-one unit and group activities. He slept 5 hours but denies depression manic or psychotic symptoms review. He has been more communicative and is not expressing psychotic thought. He is acting in a socially appropriate manner except for being sedated and that he continues to have an intensity that is demonstrated in his eye gazing, his speech and his ideas. He denies medication side effects. Current Medications Current Medications Haloperidol 10 mg BID PO Last administered on 07/18/17 07:43; Admin Dose 10 MG ; Start 07/16/17 at 20:30 Temazepam 30 mg HS PO Last administered on 07/17/17 20:09; Admin Dose 30 MG; Start 07/16/17 at 21:00 Mental Status Exam Appearance: Neat/well groomed Attitude: Pleasant, Cooperative Behavior: Other (sedated appearing) Affect: Restricted Mood: Euthymic Thought Process/Associations: Goal Directed Speech Production: Paucity Speech Rate: Lags/Latency Speech Articulation: Other (mild dysarthria) Thought Content: Perseveration, Other Danger to Self/Suicidal Ideati: None Danger to Others: None Consciousness: Somnolent Orientation: Person, Place, Date, Situation Memory: Grossly Intact Estimate Intellectual Function: Average Basis for IQ estimate: Awareness current events, Word use/vocabulary, Educational history, Employment history Attention/Concentration & Cogn: Impaired Insight: Good Judgement: Limited Result Diagram: 07/14/17 0845 07/14/17 0845 Mental Health Plan The patient is a 36-year-old male who has been staying at the [facility] trying to recover from previous substance abuse. There is a report that he has been a heroin addict as well as having schizophrenia, bipolar disorder, and two previous hospitalizations on the psychiatric unit at [facility]. I believe that Chris is recovering from an acute manic episode. He is currently contained but I believe he needs an additional week of treatment. [place] AXIS I 1. Psychotic disorder unspecified versus schizophrenia 2. Bipolar disorder by report AXIS II deferred AXIS III None acute. AXIS IV Unknown. AXIS V Current global assessment of functioning equal to 35 Treatments Patient is being provided with a high degree of safety through our unit structure and active adult engagement provided by our mental health professionals, mental health technicians, psychiatric nurses and myself. We are focusing on developing improved coping skills and identifying stressors that may have led to current episode. We will attempt to: * Integrate into therapeutic groups, milieu and individual therapy. * Maintain in a closely monitored and structured unit * Provide low-stimulation environment * Obtain collateral data to assist in treatment planning * Assess degree of lability of affect and impulse control * Complete safety plan * Decrease frequency of relapse and need for re-hospitalization * Denies thoughts of harm to self and/or others * Establish a consistent sleep pattern * Medication effective in stabilization of mood and/or thought process * Reduce the risk of imminent harm to self and/or others by providing a safe environment * Tolerates medication without side effects * Patient will be on the following psychiatric medications: Depakote 1000mg po bid Haloperidol 10mg po bid Chlorpromazine 50-100 mg 4 times daily as needed for severe agitation Temazepam 30mg nightly Clonazepam 1 bid and 1 mg Labs:VPA, CBC, CMP on 07/19/17 Education: Educate patient about recreational drug use as an etiology Patient's legal status Patient is on a 14 day MR involuntary treatment hold. Patient will be given the opportunity to talk to her billing rep and the float tender Anticipated number of hospital days to achieve above goals: 5 Disposition: Ctr., Mio Glez MD Jul 18, 2017 14:05
--- NOTE | 2017-07-18 14:25 | NUR ---
NURSE NOTE DAY Mood: "I'm great." Denies depression, anxiety. Affect: Blunted. Behavior: Pt observed walking hallways and resting in room. Attended relaxation group. Up for meals. Appropriate with staff and peers. 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 Denies AH, VH. Denies SI, HI. PRN/NURS Notes: Requested medication for sore throat and headache -- took PRN ibuprofen 600 mg for headache and cepacol lozenge for sore throat around 0930. Pt has had difficulty swallowing pills yesterday and today. After several attempts to swallow scheduled Haldol, pt spit the Haldol out into the cup stating, "I cant swallow it." Pt willingly took the medication mixed with applesauce.
[2017-07-18 16:44] VITALS: BP 109/71; PULSE 84; RESP 16
--- NOTE | 2017-07-18 17:56 | NUR ---
[facility] Day Shift Pt affect and behavior unchanged from previous shifts. Pt maintained behavioral control throughout the shift. Pt affect appears flat, blunt, somewhat brighter when engaged with staff and peers. Pt continues to display poor boundaries, but remains redirectable. Pt speech is somewhat slurred/difficult to understand. Pt spends most of the shift resting in his room, pacing the unit, engaging in unit activities, and attempting to interact with staff and peers. Pt attended community meeting in the AM and passively attended group activities throughout the shift. Pt attended all meals and ate approx 90% of all meals.
--- NOTE | 2017-07-18 18:14 | NUR ---
Plant Operations Engineer/Counselor S:"I feel optimistic." O: Patient denies any SI or HI, no AVH, no anxiety or depression. A: Patient is labile and paranoid, internally occupied and grandiose. Friendly and outgoing on the unit, with patients and staff. Patient paces the hallway or spends time in the group room listening to music. P: Follow care plan and coordinate with outpatient providers.
[2017-07-18] MEDS: Alum-Mag Hydrox-Simeth 30 mL Suspension PO PRN (22:20)
--- NOTE | 2017-07-18 22:38 | NUR ---
NURSING NOTE [id number] Mood: "good, praise God!" Affect: blunted, calm, cooperative Behavior: pt. wanders the unit off and on, sometimes aimlessly. His mother and brother visited and pt. reported the visit went well. He watched TV for some time, participated in art group, and has been med compliant. Thought processes: pt. denies AH/VH/SI/HI. As for anxiety and depression he reports he has "a little bit of both." Pt. did not express any delusional thought content out loud to this keno writer / runner but did share some of his writings w/this keno writer / runner, the contents of which were grandiose e.g. "I was born to spread love around the world."
[2017-07-19] MEDS: hydrOXYzine Pamoate 25 mg Capsule PO PRN ×3 (03:20→20:17)
--- NOTE | 2017-07-19 05:05 | NUR ---
Nursing Note Dispatcher Service Chief 11pm to 7am Pt awake at start of shift, watching tv in the day room. Had some difficulty getting to sleep with several wakeful periods in between. Pt awake at 0315, drooling profusely, Given vistaril 50mg, and extra washcloths and was able to go back to sleep .Pt remained calm, cooperative, and polite. Has not demonstrated any menacing bx or facial gestures this shift.. Monitored pt. with q 15 minute face checks for safety, location and accountability
--- NOTE | 2017-07-19 05:08 | NUR ---
Nursing Note Road Equipment Operator 11pm to 7am Pt asleep at start of shift, woke up at 0030 requesting Ativan to help her go back to sleep. Encouraged pt to try to get back to sleep on her own as it was reported that pt has been overly sedated some mornings after taking Ativan during the night. Pt agreed and able to get back to sleep on her own. No issues reported or observed. Monitored pt. with q 15 minute face checks for safety, location and accountability
[2017-07-19] MEDS: Divalproex (QD) 500 mg ER24 Tablet PO SCH ×2 (08:08→20:16)
[2017-07-19] MEDS: Acyclovir 400 mg Tablet PO SCH ×2 (08:08→20:58)
[2017-07-19 11:40] LABS: BASOPHILS % (AUTO) 0.2 % (0-3); EOSINOPHILS % (AUTO) 3.5 % (0-5); MONOCYTES % (AUTO) 7.5 % (4-12); Mean Corpuscular Hemoglobin 32.5 pg (27.0-35.0); Mean Corpuscular Volume 92.9 fL (81-100); NEUTROPHILS % (AUTO) 61.2 % (40-74); Platelet Count 271 bil/L (150-400)
--- NOTE | 2017-07-19 12:24 | PCM.PNPSY ---
Subjective Date of Service Jul 19, 2017 Subjective I spent 30 minutes both reviewing treatment plan with our clinical team, interviewing the patient and providing supportive/educational psychotherapy. I spent more than 50% of the time counseling the patient. I reviewed the treatment plan with the him and discussed options available including the potential risks, benefits and side effects. Chris reports continued improvement in thought organization and mood stability. Staff reports that he has been active and participating well in one-to-one unit and group activities. He slept 5 well. He has been more communicative and is not expressing psychotic thought. He is acting in a socially appropriate manner except for being sedated and that he continues to have an intensity that is demonstrated in his eye gazing, his speech and his ideas. He denies medication side effects. Mental Status Exam Appearance: Neat/well groomed Attitude: Pleasant, Cooperative Behavior: Other (sedated appearing) Affect: Restricted Mood: Euthymic Thought Process/Associations: Goal Directed Speech Production: Paucity Speech Rate: Lags/Latency Speech Articulation: Other (mild dysarthria) Thought Content: Perseveration, Other Danger to Self/Suicidal Ideati: None Danger to Others: None Consciousness: Somnolent Orientation: Person, Place, Date, Situation Memory: Grossly Intact Estimate Intellectual Function: Average Basis for IQ estimate: Awareness current events, Word use/vocabulary, Educational history, Employment history Attention/Concentration & Cogn: Impaired Insight: Good Judgement: Limited Result Diagram: 07/19/17 1130 07/19/17 1130 Mental Health Plan The patient is a 36-year-old male who has been staying at the [facility] trying to recover from previous substance abuse. There is a report that he has been a heroin addict as well as having schizophrenia, bipolar disorder, and two previous hospitalizations on the psychiatric unit at [facility]. He is currently contained but I believe he needs an additional week of treatment. His thought processing is impaired and this is effecting his judgement insight and impulse control. [place] AXIS I 1. Psychotic disorder unspecified versus schizophrenia 2. Bipolar disorder by report AXIS II deferred AXIS III None acute. AXIS IV Unknown. AXIS V Current global assessment of functioning equal to 35 Treatments Patient is being provided with a high degree of safety through our unit structure and active adult engagement provided by our mental health professionals, mental health technicians, psychiatric nurses and myself. We are focusing on developing improved coping skills and identifying stressors that may have led to current episode. We will attempt to: * Integrate into therapeutic groups, milieu and individual therapy. * Maintain in a closely monitored and structured unit * Provide low-stimulation environment * Obtain collateral data to assist in treatment planning * Assess degree of lability of affect and impulse control * Complete safety plan * Decrease frequency of relapse and need for re-hospitalization * Denies thoughts of harm to self and/or others * Establish a consistent sleep pattern * Medication effective in stabilization of mood and/or thought process * Reduce the risk of imminent harm to self and/or others by providing a safe environment * Tolerates medication without side effects * Patient will be on the following psychiatric medications: Depakote 1000mg po bid Haloperidol 10mg po bid Chlorpromazine 50-100 mg 4 times daily as needed for severe agitation Temazepam 30mg nightly Clonazepam 1 bid and 1 mg Labs:VPA 87, CBC nl , CMP nl on 07/19/17 Education: Educate patient about recreational drug use as an etiology Patient's legal status Patient is on a 14 day involuntary treatment hold. Patient will be given the opportunity to talk to her paper ruler and the pen and pencil repairer Anticipated number of hospital days to achieve above goals: 5 Disposition: Ctr., Mio Glez MD Jul 19, 2017 12:24
--- NOTE | 2017-07-19 14:05 | NUR ---
Nursing Days Pt visible on the unit, eating meals and listening to music in the rec therapy room. He is c/o racing thoughts "I just can't shut off my thoughts. It is hard to sleep." Pt requested medication stating "Can I have something for sleep?" Pt informed it is to early for sleep medication but offered klonopin 1mg po prn & vistaril 50mg po prn for felt anxiety and to help promote rest. Pt also c/o indigestion and provided tums. Pt remains awake and active on the unit. Thoughts delusional, cooperative with care.
--- NOTE | 2017-07-19 18:11 | NUR ---
Enterprise Software Developer/Counselor S:"I want to go to the [facility]." O: Patient denies any SI or HI, no AVH, no anxiety or depression. A: Patient is labile and paranoid, internally occupied and grandiose. Friendly and outgoing on the unit and interacting with patients and staff. Patient paces the hallway or spends time in the group room listening to music. Is requesting to get information about going to the [facility] in [place]. P: Follow care plan and coordinate with outpatient providers
[2017-07-19 19:09] VITALS: BP 97/63; PULSE 69; RESP 17
--- NOTE | 2017-07-19 22:11 | NUR ---
Nurses Note Evening Patient c/o racing thoughts and inability to quiet his mind. He has been pleasant with good eye contact,thoughts have been clear and reality based. Patient has been isolating in the rec room listening to music and writing or drawing with minimal interactions with peers and has maintained behavioral control. He remains medication compliant without adverse effects,will maintain q 15min. checks for safety and support. Addendum: 07/19/17 at 2214 by MARGARITA HOPSON RN Amended: Links added.
--- NOTE | 2017-07-20 02:32 | NUR ---
Observations 1900 to 0700 Pt attended and participated in wrap up group. Pt ate a snack. Pt reported mood of 4. Pt spends times pacing unit and in group room. Pt is not social with peers. Pt has a pressured, but sedated affect. Pts speech is slurred and pressured and pt was encouraged to rest. Pt has had broken sleep. Pt appeared asleep from 2100- 2215, 2330- 0045 and has remained asleep since 0145. Pt respirations were observed when asleep. Staff completed 15 min close observations as ordered.
--- NOTE | 2017-07-20 04:19 | NUR ---
Nursing Note Fork Lift Truck Operator 11pm to 7am Pt slept for 2 hour intervals before waking up multiple times throughout the night. At 0030 pt took Restoril for insomnia as he had declined it earlier. Pt continues to drool, appears med effected, thoughts intermittently disorganized. Pt was cooperative, followed directions and was in control of his bx this shift. Monitored pt. with q 15 minute face checks for safety location and accountability
[2017-07-20 04:24] VITALS: BP 94/63; PULSE 57; RESP 18
[2017-07-20] MEDS: Acyclovir 400 mg Tablet PO SCH ×2 (08:42→20:31)
[2017-07-20] MEDS: Divalproex (QD) 500 mg ER24 Tablet PO SCH ×2 (08:42→20:32)
[2017-07-20 10:00] VITALS: BP 115/71; PULSE 81
--- NOTE | 2017-07-20 13:39 | PCM.PNPSY ---
Subjective Date of Service Jul 20, 2017 Subjective I spent 30 minutes both reviewing treatment plan with our clinical team, interviewing the patient and providing supportive/educational psychotherapy. I spent more than 50% of the time counseling the patient. I reviewed the treatment plan with the him and discussed options available including the potential risks, benefits and side effects. Chris reports continued improvement in thought organization and mood stability. Staff reports that he has been active and participating well in one-to-one unit and group activities. He slept well. He has been more communicative and is not expressing psychotic thought. He is acting in a socially appropriate manner except for being sedated and that he continues to have an intensity that is demonstrated in his eye gazing, his speech and his ideas. He denied auditory hallucinations or paranoid delusions. He denies medication side effects. Mental Status Exam Vital Signs Vital Signs Date Time Temp Pulse Resp B/P Pulse Ox O2 Delivery O2 Flow Rate FiO2 07/20/17 10:00 36.1 81 115/71 Appearance: Neat/well groomed Attitude: Pleasant, Cooperative Affect: Restricted Mood: Euthymic Thought Process/Associations: Goal Directed Speech Production: Paucity Speech Rate: Normal Thought Content: Perseveration, Other Danger to Self/Suicidal Ideati: None Danger to Others: None Consciousness: Alert Orientation: Person, Place, Date, Situation Memory: Grossly Intact Estimate Intellectual Function: Average Basis for IQ estimate: Awareness current events, Word use/vocabulary, Educational history, Employment history Attention/Concentration & Cogn: Impaired Insight: Good Judgement: Limited Result Diagram: 07/19/17 1130 07/19/17 1130 Mental Health Plan The patient is a 36-year-old male who has been staying at the [facility] trying to recover from previous substance abuse. There is a report that he has been a heroin addict as well as having schizophrenia, bipolar disorder, and two previous hospitalizations on the psychiatric unit at [facility]. He is currently contained but I believe he needs an additional week of treatment. His thought processing is impaired and this is effecting his judgement insight and impulse control. He is denying acute paranoia and believes the medications Are at an appropriate level for him. [place] AXIS I 1. Psychotic disorder unspecified versus schizophrenia 2. Bipolar disorder by report AXIS II deferred AXIS III None acute. AXIS IV Unknown. AXIS V Current global assessment of functioning equal to 35 Treatments Patient is being provided with a high degree of safety through our unit structure and active adult engagement provided by our mental health professionals, mental health technicians, psychiatric nurses and myself. We are focusing on developing improved coping skills and identifying stressors that may have led to current episode. We will attempt to: * Integrate into therapeutic groups, milieu and individual therapy. * Maintain in a closely monitored and structured unit * Provide low-stimulation environment * Obtain collateral data to assist in treatment planning * Assess degree of lability of affect and impulse control * Complete safety plan * Decrease frequency of relapse and need for re-hospitalization * Denies thoughts of harm to self and/or others * Establish a consistent sleep pattern * Medication effective in stabilization of mood and/or thought process * Reduce the risk of imminent harm to self and/or others by providing a safe environment * Tolerates medication without side effects * Patient will be on the following psychiatric medications: Depakote 1000mg po bid Haloperidol 10mg po bid Temazepam 30mg nightly Change Clonazepam .5 mg twice a day Labs:VPA 87, CBC nl , CMP nl on 07/19/17 Education: Educate patient about recreational drug use as an etiology Patient's legal status Patient is on a 14 day MR involuntary treatment hold. Patient will be given the opportunity to talk to her per diem clerk and the application integrator Anticipated number of hospital days to achieve above goals: 5 Disposition: Ctr., Mio Glez MD Jul 20, 2017 13:39
--- NOTE | 2017-07-20 13:40 | NUR ---
Nursing Days Pt presents as pleasant/polite telling staff "Thank you for being here". Pt still concerned about his belongings at [facility]. Spoke with our staff and the plan is to arrange for him to receive his belongings when it is time for him to discharge. Pt called [facility] and spoke with his briefcase sewer, Christie. She faxed paperwork for the patient to sign that will begin the process of getting him back into [facility] or else Davide Fong, she will be his advocate in making these arrangements. Our briefcase sewer, Daniela, was given paperwork faxed by Christie Lau from the [facility]. Pt c/o anxiety and a headache after lunch. He received Klonopin 1mg po prn and Motrin 600mg po prn with good effect. Pt currently listening to music.
--- NOTE | 2017-07-20 17:41 | NUR ---
Lens Grinder/Counselor S:"I'm feeling optimistic." O: Patient denies any SI or HI, no auditory or visual hallucinations. No anxiety or depression. A : Patient has been pacing the unit or listening to music. He is internally preoccupied and labile. Upset when told that staff could not pick his belongings up from N, but quickly apologized for his behavior. The [facility] has faxed the patient some papers to sign and is sending assessments to the [facility] as well as possibly returning to the [facility]. P: Follow care plan and coordinate outpatient providers.
[2017-07-20] MEDS: Alum-Mag Hydrox-Simeth 30 mL Suspension PO PRN ×2 (19:06→22:27)
[2017-07-20] MEDS: hydrOXYzine Pamoate 25 mg Capsule PO PRN (22:07)
[2017-07-20] MEDS: Benzocaine-Menthol Lozenge 2/Pkg PO PRN (22:07)
--- NOTE | 2017-07-20 22:41 | NUR ---
EVENING NURSE NOTE [id number]: Pt has been between the group room and his room throughout the shift. Pt denies depression, HI SI AH VH and anxiety, but reported he was feeling aggression today in regards to his . When staff asked how long it has been since he talked to his he replied we have been for years. Pt in room most of the evening, coming out after 0. Pt monitored q15 min for location, safety, and accountability.
--- NOTE | 2017-07-21 03:59 | NUR ---
Observations 1900 to 0700 Pt ate a snack. Pt spends free time in group room or else pacing unit. Pt appears groggy with pressured affect at times. Pt maintained behavioral control and showed. Pt appeared asleep from 0- 5 and has remained asleep since 0. Pt respirations were observed when asleep. Staff completed 15 min close observations as ordered.
--- NOTE | 2017-07-21 05:58 | NUR ---
Nursing Note Campaign Manager 11pm-7am Patient was in room at start of shift. He was noted to be asleep from [id number]. He awoke and requested a Nicorette lozenge, was given one lozenge and returned to room and was noted to be asleep from [id number]. Patient slept for 4.75 hours. Pt monitored q 15 minutes for safety, location and accountability.
[2017-07-21] MEDS: Divalproex (QD) 500 mg ER24 Tablet PO SCH ×2 (08:09→20:22)
[2017-07-21] MEDS: Acyclovir 400 mg Tablet PO SCH ×2 (08:10→20:23)
[2017-07-21 13:39] VITALS: BP 125/72; PULSE 90; RESP 16
[2017-07-21] MEDS: hydrOXYzine Pamoate 25 mg Capsule PO PRN ×2 (13:51→19:30)
--- NOTE | 2017-07-21 14:17 | NUR ---
Nursing Days Pt presents with clearer thought and speech. He is attending to his grooming needs, eating and taking medications as scheduled. No behavioral problems. He has been making phone calls and watching television. He c/o of indigestion and received tums 1000 mg and Vistaril 50mg po prn for felt anxiety. Continue to monitor and support as needed.
--- NOTE | 2017-07-21 14:30 | PCM.PNPSY ---
Subjective Date of Service Jul 21, 2017 Subjective I spent 30 minutes both reviewing treatment plan with our clinical team, interviewing the patient and providing supportive/educational psychotherapy. I spent more than 50% of the time counseling the patient. I reviewed the treatment plan with the him and discussed options available including the potential risks, benefits and side effects. Chris reports continued improvement in thought organization and mood stability. Staff reports that he has been active and participating well in one-to-one unit and group activities. He slept well. He has been more communicative and is not expressing psychotic thought. He is acting in a socially appropriate manner except for being sedated and that he continues to have an intensity that is demonstrated in his eye gazing, his speech and his ideas. He denied auditory hallucinations or paranoid delusions. He denies medication side effects. Current Medications Current Medications Clonazepam 0.5 mg 16,21 PO Last administered on 07/20/17 20:31; Admin Dose 0.5 MG; Start 07/20/17 at 16:00 Temazepam 15 mg HS PO Last administered on 07/20/17 20:31; Admin Dose 15 MG; Start 07/20/17 at 21:00 Mental Status Exam Vital Signs Vital Signs Date Time Temp Pulse Resp B/P Pulse Ox O2 Delivery O2 Flow Rate FiO2 07/21/17 13:39 36.1 90 16 125/72 Appearance: Neat/well groomed Attitude: Pleasant, Cooperative Affect: Restricted Mood: Euthymic Thought Process/Associations: Goal Directed Speech Production: Normal Speech Rate: Lags/Latency Speech Articulation: Normal Thought Content: Perseveration, Other Danger to Self/Suicidal Ideati: None Danger to Others: None Consciousness: Alert Orientation: Person, Place, Date, Situation Memory: Grossly Intact Estimate Intellectual Function: Average Basis for IQ estimate: Awareness current events, Word use/vocabulary, Educational history, Employment history Attention/Concentration & Cogn: Impaired Insight: Good Judgement: Limited Result Diagram: 07/19/17 1130 07/19/17 1130 Mental Health Plan The patient is a 36-year-old male who has been staying at the [facility] trying to recover from previous substance abuse. There is a report that he has been a heroin addict as well as having schizophrenia, bipolar disorder, and two previous hospitalizations on the psychiatric unit at [facility]. He is currently contained but I believe he needs an additional week of treatment. His thought processing is improving and this is improving his judgement insight and impulse control. He is denying acute paranoia and believes the medications Are at an appropriate level for him. If patient continues to improve and we are able to secure a structured environment I believe he would be ready for discharge over the next 3-5 days. [place] AXIS I 1. Psychotic disorder unspecified versus schizophrenia 2. Bipolar disorder by report AXIS II deferred AXIS III None acute. AXIS IV Unknown. AXIS V Current global assessment of functioning equal to 40 Treatments Patient is being provided with a high degree of safety through our unit structure and active adult engagement provided by our mental health professionals, mental health technicians, psychiatric nurses and myself. We are focusing on developing improved coping skills and identifying stressors that may have led to current episode. We will attempt to: * Integrate into therapeutic groups, milieu and individual therapy. * Maintain in a closely monitored and structured unit * Provide low-stimulation environment * Obtain collateral data to assist in treatment planning * Assess degree of lability of affect and impulse control * Complete safety plan * Decrease frequency of relapse and need for re-hospitalization * Denies thoughts of harm to self and/or others * Establish a consistent sleep pattern * Medication effective in stabilization of mood and/or thought process * Reduce the risk of imminent harm to self and/or others by providing a safe environment * Tolerates medication without side effects * Patient will be on the following psychiatric medications: Depakote 1000mg po bid Haloperidol 10mg po bid Temazepam 15mg nightly Clonazepam .5 mg twice a day Cogentin 1 mg twice a day Labs:VPA 87, CBC nl , CMP nl on 07/19/17 Education: Educate patient about recreational drug use as an etiology Patient's legal status Patient is on a 14 day MR involuntary treatment hold. Patient will be given the opportunity to talk to her open hearth laborer and the proof clerk Anticipated number of hospital days to achieve above goals: 5 Disposition: [facility] Mio Glez MD Jul 21, 2017 14:30
--- NOTE | 2017-07-21 18:22 | NUR ---
Industrial Engineering Manager/Counselor: S: "I just don't want to mess up my chances." O: Patient slept 4.75 hours last night per staff. Patient denies S/I and H/I. He also denies auditory and visual hallucinations. Depression is 0/10 and anxiety is 0/10. When asked his mood, patient stated, "I feel fine." A: Patient is cooperative, euphoric, dysthymic, paranoid, suspicious, religiously preoccupied, fair insight, fair judgment. P: Follow the care plan, coordinate with out-patient providers.
--- NOTE | 2017-07-21 18:39 | NUR ---
[facility] Day Shift Pt maintained behavioral control throughout the shift. Pt affect appears flat, blunt, somewhat brighter when engaged with staff and peers. Pt speech is somewhat slurred/difficult to understand. Pt has not displayed poor boundaries as reported on previous shifts. Pt spends most of the shift resting in his room, pacing the unit, engaging in unit activities, and attempting to interact with staff and peers. Pt passively attended group activities throughout the shift. Pt attended all meals and ate approx 90% of all meals.
--- NOTE | 2017-07-21 22:29 | NUR ---
EVENING NURSE NOTE [id number]: Pt was in the milieu at the beginning of the shift. Pt reported to have anxiety 5/10 before dinner and received a PRN 600mg Motrin at 1515 for a headache 05/17, then laid down for a nap until dinner came. Pt slept almost 2 hrs. Pt has been calm and appropriate throughout the evening. Pt monitored q15 min for safety, location and accountability.
--- NOTE | 2017-07-22 05:09 | NUR ---
nursing, nights, 11-7 s- can i have a cup. can you turn on the news. o- received nicotine ayanna and 50 mg of thorazine at 2350. has appeared to sleep 0045 to 0400. has remained mostly in his room. glared at staff when television was not turned on at his request. is currently in room waiting for the time the television will be turned on. assessed q 15 minutes. a- inadequate sleep, accepted limits with minimal posturing, appears internally preoccupied, no apparent physical distress. p- monitor behavior/emotional state, quality, times and amount of sleep, use and effect of medication. lonnie
[2017-07-22] MEDS: Divalproex (QD) 500 mg ER24 Tablet PO SCH ×2 (07:55→20:39)
[2017-07-22] MEDS: Acyclovir 400 mg Tablet PO SCH ×2 (07:55→20:38)
--- NOTE | 2017-07-22 12:16 | NUR ---
Nursing Days Pt presents as pleasant, social and cooperative. He reports "I am doing good." Pt requested and received medication for [place] pain he rated 6/10. Later pt reported [place] gone with no pain. He is active on unit, eating all meals and taking medication as scheduled.
--- NOTE | 2017-07-22 13:36 | PCM.PNPSY ---
Subjective Date of Service Jul 22, 2017 Subjective I spent 30 minutes both reviewing treatment plan with our clinical team, interviewing the patient and providing supportive/educational psychotherapy. I spent more than 50% of the time counseling the patient. I reviewed the treatment plan with the him and discussed options available including the potential risks, benefits and side effects. Chris reports continued improvement in thought organization and mood stability. Staff reports that he has been active and participating well in one-to-one unit and group activities. He slept well. He has been more communicative and is not expressing psychotic thought. He is acting in a socially appropriate manner except for being sedated and that he continues to have an intensity that is demonstrated in his eye gazing, his speech and his ideas. He denied auditory hallucinations or paranoid delusions. He denies medication side effects. Current Medications Current Medications Clonazepam 0.5 mg 16,21 PO Last administered on 07/21/17 20:22; Admin Dose 0.5 MG; Start 07/20/17 at 16:00 Temazepam 15 mg HS PO Last administered on 07/21/17 20:23; Admin Dose 15 MG; Start 07/20/17 at 21:00 Mental Status Exam Appearance: Neat/well groomed Attitude: Pleasant, Cooperative Affect: Restricted Mood: Euthymic Thought Process/Associations: Goal Directed Speech Production: Normal Speech Rate: Lags/Latency Speech Articulation: Normal Thought Content: Perseveration, Other Danger to Self/Suicidal Ideati: None Danger to Others: None Consciousness: Alert Orientation: Person, Place, Date, Situation Memory: Grossly Intact Estimate Intellectual Function: Average Basis for IQ estimate: Awareness current events, Word use/vocabulary, Educational history, Employment history Attention/Concentration & Cogn: Impaired Insight: Good Judgement: Limited Result Diagram: 07/19/17 1130 07/19/17 1130 Mental Health Plan The patient is a 36-year-old male who has been staying at the [facility] trying to recover from previous substance abuse. There is a report that he has been a heroin addict as well as having schizophrenia, bipolar disorder, and two previous hospitalizations on the psychiatric unit at [facility]. He is currently contained but I believe he needs an additional week of treatment. His thought processing is improving and this is improving his judgement insight and impulse control. He is denying acute paranoia and believes the medications Are at an appropriate level for him. If patient continues to improve and we are able to secure a structured environment I believe he would be ready for discharge over the next 3-5 days. [place] AXIS I 1. Psychotic disorder unspecified versus schizophrenia 2. Bipolar disorder by report AXIS II deferred AXIS III None acute. AXIS IV Unknown. AXIS V Current global assessment of functioning equal to 40 Treatments Patient is being provided with a high degree of safety through our unit structure and active adult engagement provided by our mental health professionals, mental health technicians, psychiatric nurses and myself. We are focusing on developing improved coping skills and identifying stressors that may have led to current episode. We will attempt to: * Integrate into therapeutic groups, milieu and individual therapy. * Maintain in a closely monitored and structured unit * Provide low-stimulation environment * Obtain collateral data to assist in treatment planning * Assess degree of lability of affect and impulse control * Complete safety plan * Decrease frequency of relapse and need for re-hospitalization * Denies thoughts of harm to self and/or others * Establish a consistent sleep pattern * Medication effective in stabilization of mood and/or thought process * Reduce the risk of imminent harm to self and/or others by providing a safe environment * Tolerates medication without side effects * Patient will be on the following psychiatric medications: Depakote 1000mg po bid Haloperidol 10mg po bid Clonazepam .5 mg twice a day Cogentin 1 mg twice a day Labs:VPA 87, CBC nl , CMP nl on 07/19/17 Education: Educate patient about recreational drug use as an etiology Patient's legal status Patient is on a 14 day involuntary treatment hold. Patient will be given the opportunity to talk to her assistant softball coach and the bankruptcy judge Anticipated number of hospital days to achieve above goals: 3-5 Disposition: [facility] if bed available Mio Hansen MD Jul 22, 2017 13:36
[2017-07-22] MEDS: Alum-Mag Hydrox-Simeth 30 mL Suspension PO PRN (15:16)
[2017-07-22 15:48] VITALS: BP 106/68; PULSE 83; RESP 16
--- NOTE | 2017-07-22 20:41 | NUR ---
Observations 0900 - 2130 Pt affect and mood was same as previous shifts. Pt was pleasant, polite and cooperative when approached. Pt maintained behavior throughout the shift. Pt attended meals in D.R. and ate 100% of his meals. Pt ate snack. Pt attended unit activities. Pt attended community and set a daily goal. Pt paced the hallway and was in and out of his room during free time. Pt took [address] Pt was observed every 15 minutes through the shift as ordered.
[2017-07-22] MEDS: hydrOXYzine Pamoate 25 mg Capsule PO PRN (21:14)
[2017-07-23] MEDS: hydrOXYzine Pamoate 25 mg Capsule PO PRN ×3 (04:37→19:10)
--- NOTE | 2017-07-23 04:58 | NUR ---
nursing, nights, 11-7 s- i need the razor. a shower. klonopin ? o- has appeared to sleep after 0130. up briefly at 0248 and again at 0430. received 50 mg of vistaril at 0435 and has returned to bed. assessed q 15 minutes. a- inadequate/interupted sleep. initially resistant to staff refusal of request but was able to return to pleasant interactions with staff. no apparent physical distress. p- monitor behavior/emotional state, quality, times and amount of sleep, use and effect of medication. lonnie
[2017-07-23] MEDS: Divalproex (QD) 500 mg ER24 Tablet PO SCH ×2 (08:14→19:56)
[2017-07-23] MEDS: Acyclovir 400 mg Tablet PO SCH ×2 (08:14→19:56)
--- NOTE | 2017-07-23 10:18 | PCM.PNPSY ---
Subjective Date of Service Jul 23, 2017 Subjective I spent 30 minutes both reviewing treatment plan with our clinical team, interviewing the patient and providing supportive/educational psychotherapy. I spent more than 50% of the time counseling the patient. I reviewed the treatment plan with the him and discussed options available including the potential risks, benefits and side effects. Chris reports continued improvement in thought organization and mood stability. Staff reports that he has been active and participating well in one-to-one unit and group activities. He slept well. He has been more communicative and is not expressing psychotic thought. He is acting in a socially appropriate manner except for being sedated. He has good eye contact, He denied auditory hallucinations or paranoid delusions. He spent most of the time future planning how to take care of his needs both mental health and substance abuse. He denies medication side effects Mental Status Exam Appearance: Neat/well groomed Attitude: Pleasant, Cooperative Behavior: Distractible Affect: Restricted Mood: Euthymic Thought Process/Associations: Goal Directed Speech Production: Normal Speech Rate: Lags/Latency Speech Articulation: Normal Thought Content: Perseveration, Other Danger to Self/Suicidal Ideati: None Danger to Others: None Consciousness: Alert Orientation: Person, Place, Date, Situation Memory: Grossly Intact Estimate Intellectual Function: Average Basis for IQ estimate: Awareness current events, Word use/vocabulary, Educational history, Employment history Attention/Concentration & Cogn: Impaired Insight: Good Judgement: Limited Result Diagram: 07/19/17 1130 07/19/17 1130 Mental Health Plan The patient is a 36-year-old male who has been staying at the [facility] trying to recover from previous substance abuse. There is a report that he has been a heroin addict as well as having schizophrenia, bipolar disorder, and two previous hospitalizations on the psychiatric unit at [facility]. He is currently contained but I believe he needs an additional weekend of treatment. His thought processing is improving and this is improving his judgement insight and impulse control. He is denying acute paranoia and believes the medications Are at an appropriate level for him. If patient continues to improve and we are able to secure a structured environment I believe he would be ready for discharge on this coming Wednesday on a 90 day LR O. [place] AXIS I 1. Psychotic disorder unspecified versus schizophrenia 2. Bipolar disorder by report AXIS II deferred AXIS III None acute. AXIS IV Unknown. AXIS V Current global assessment of functioning equal to 40 Treatments Patient is being provided with a high degree of safety through our unit structure and active adult engagement provided by our mental health professionals, mental health technicians, psychiatric nurses and myself. We are focusing on developing improved coping skills and identifying stressors that may have led to current episode. We will attempt to: * Integrate into therapeutic groups, milieu and individual therapy. * Maintain in a closely monitored and structured unit * Provide low-stimulation environment * Obtain collateral data to assist in treatment planning * Assess degree of lability of affect and impulse control * Complete safety plan * Decrease frequency of relapse and need for re-hospitalization * Denies thoughts of harm to self and/or others * Establish a consistent sleep pattern * Medication effective in stabilization of mood and/or thought process * Reduce the risk of imminent harm to self and/or others by providing a safe environment * Tolerates medication without side effects * Patient will be on the following psychiatric medications: Depakote 1000mg po bid Haloperidol 10mg po bid Change Clonazepam .5 mg twice a day to when necessary Cogentin 1 mg twice a day Labs:VPA 87, CBC nl , CMP nl on 07/19/17 Education: Educate patient about recreational drug use as an etiology Patient's legal status Patient is on a 14 day MR involuntary treatment hold. Patient will be given the opportunity to talk to his jig borer on Wednesday and the test driller on Wednesday Anticipated number of hospital days to achieve above goals: 3 Disposition: [facility] in [place] if bed available, [facility] for therapy and medication management case investigator Mio Perla MD Jul 23, 2017 10:18
[2017-07-23 11:11] VITALS: BP 119/74; PULSE 71; RESP 16
--- NOTE | 2017-07-23 13:29 | NUR ---
[facility] Day Shift Pt maintained behavioral control throughout the shift. Pt affect appears flat, blunt, somewhat brighter when engaged with staff and peers. Pt appears less active on the unit than reported on previous shifts. Pt speech is somewhat slurred/difficult to understand. Pt has not displayed poor boundaries as reported on previous shifts. Pt spends most of the shift resting in his room, pacing the unit, engaging in unit activities, and attempting to interact with staff and peers. Pt has attended all meals and has eaten approx 90% of all meals.
--- NOTE | 2017-07-23 14:23 | NUR ---
Nursing: Pt has been out in the milieu about half the shift with short naps in between. He is calm, compliant with meds and appropriate in his interactions. He requested Vistaril @ 1045 for anxiety and this was effective. He showered and shaved. He denies disturbing thoughts
[2017-07-23] MEDS: Alum-Mag Hydrox-Simeth 30 mL Suspension PO PRN ×2 (16:09→20:18)
--- NOTE | 2017-07-23 19:56 | NUR ---
Flat Examiner/Counselor: S: "I just want to be able to get housing somewhere." O: Patient slept 4.5 hours last night per staff. Patient denies S/I and H/I. He also denies auditory and visual hallucinations. Depression is 0/10 and anxiety is 0/10. Patient is in constant communication with Sarah from the [facility] in reference to housing/discharge resources upon discharge. A: Patient is cooperative, euphoric, dysthymic, religiously preoccupied, fair insight, fair judgment. P: Follow the care plan, coordinate with out-patient providers.
--- NOTE | 2017-07-23 20:20 | NUR ---
EVENING NURSE NOTE [id number]: Pt had just finished showering at the beginning of the shift. Pt has mostly been in his room or the group room. Pt has been calm and appropriate. Pt talks about being ready and looking forward to leaving. Pt monitored q15 min for safety, location and accountability.
--- NOTE | 2017-07-23 21:51 | NUR ---
behavior: pt. wanting evening meds early. stated "he had a good day", had visitors yesterday from [facility]. "I just need housing set up, then I can get back on my feet."
[2017-07-24] MEDS: hydrOXYzine Pamoate 25 mg Capsule PO PRN ×4 (00:46→23:03)
[2017-07-24 07:45] VITALS: BP 113/72; PULSE 79; RESP 16
[2017-07-24] MEDS: Divalproex (QD) 500 mg ER24 Tablet PO SCH ×2 (08:36→20:47)
[2017-07-24] MEDS: Acyclovir 400 mg Tablet PO SCH ×2 (08:36→20:47)
--- NOTE | 2017-07-24 12:51 | NUR ---
day shift nursing note S/O-"I just want to remain calm so I can go home soon." Pt. has been cooperative and compliant on the unit. He has come out o his room for meals. He has a flat, blunted affect. He denies having any hallucinations. He appears internally preoccupied with a restricted affect. He requests meds as he needs them. He requested and was given Klonopin 0.5 mg. PO prn at 0842 for anxiety. At 1101, he requested and was given 50 mg. of vistaril PO prn for anxiety. At 1239, he requested and was given 5 mg. of Haldol PO prn for increasing anxiety and psychosis. A-Psychosis. P-Monitor for safety per protocol. Assess efficacy of meds to manage psychosis and prevent side effects. Encourage use of coping techniques to decrease anxiety.
[2017-07-24] MEDS: Alum-Mag Hydrox-Simeth 30 mL Suspension PO PRN ×2 (15:48→21:44)
--- NOTE | 2017-07-24 16:22 | NUR ---
Kettle Hand/Counselor S:"I'm ready to move on. I'm positive, and am ready to contribute to society." O:O: Patient denies any SI or HI, no auditory or visual hallucinations. No anxiety or depression. A: Patient has been cooperative and compliant. Restricted affect, flat. Frustrated at not being able to discharge today. P: Follow care plan and coordinate with outpatient providers.
--- NOTE | 2017-07-24 16:46 | NUR ---
Observations 0700 to 1900 Pt attended and participated in community meeting. Pt attended recreational activities. Pt ate a snack. Pt showered. Pt is mildly social with peers. Pt is pleasant and cooperative. Pt sometimes paces unit but also settled into writing music lyrics with a peer. Pt does appear internally preoccupied at times. Pt maintained behavioral control. Breakfast: 100%. Lunch: 100%. Staff completed 15 min close observations as ordered.
--- NOTE | 2017-07-24 18:08 | NUR ---
Nurses Note Evening Patient requested and received Klonopin 0.5mg and Vistaril 50mg for c/o increasing anxiety,will assess response.
--- NOTE | 2017-07-24 18:14 | PCM.PNPSY ---
Subjective Date of Service Jul 24, 2017 Subjective The patient reported today, "I feel great. I'm ready to go. I just need to have clothes dropped off at the [facility]." Patient had difficulty following that he had no follow-up appointments/provider and would not be discharged without them. He became somewhat irritable and perseverative but eventually terminated his request for discharge today. He reported that his thinking was fairly clear. He reported that the events leading up to admission were a little unclear to him but he recalled that he "got a little aggressive and turned over some furniture." He denied side effects. Sleep: "well" Appetite: "good: Suicidal and homicidal ideation: denies Auditory hallucinations: denies Visual hallucinations: denies Other Psychotic Symptoms: concrete thinking as above, denies racing thoughts Anxiety: 110 Depression: 0/10 Current Medications Current Medications Clonazepam 0.5 mg Q8 PRN PO Last administered on 07/24/17 08:42; Admin Dose 0.5 MG; Start 07/23/17 at 16:30 Haloperidol 5 mg BID PRN PO Last administered on 07/24/17 12:39; Admin Dose 5 MG; Start 07/24/17 at 11:35 Mental Status Exam Appearance: Neat/well groomed Attitude: Cooperative, Other (irritable when not discharged.) Behavior: Distractible Affect: Restricted Mood: Irritable Thought Process/Associations: Goal Directed Speech Production: Normal Speech Rate: Lags/Latency Speech Articulation: Normal Thought Content: Perseveration Danger to Self/Suicidal Ideati: None Danger to Others: None Hallucinations: Auditory (Denies), Visual (Denies) Consciousness: Alert Orientation: Person, Place, Date, Situation Memory: Grossly Intact Estimate Intellectual Function: Average Basis for IQ estimate: Awareness current events, Word use/vocabulary, Educational history, Employment history Attention/Concentration & Cogn: Impaired Insight: Good Judgement: Limited Result Diagram: 07/19/17 1130 07/19/17 1130 Mental Health Plan The patient is a 36-year-old male who has been staying at [facility] for substance use treatment. Reportedly the patient has a history of heroin use disorder, schizophrenia, bipolar disorder, and two previous hospitalizations on the psychiatric unit at [facility]. He required a large amount of neuroleptics and sedatives to calm in the ED. By report, he has showed gradual and steady improvement with social interactions and ADLs since hospitalization. The patient has been stabilizing over the last week and appears to be responding to haloperidol. He still has limited insight and poor frustration tolerance though significantly improved over admission. He would benefit from a LRO on discharge given his responses today and history. [place] AXIS I 1. Psychotic disorder unspecified versus schizophrenia 2. Bipolar disorder by report AXIS II deferred AXIS III None acute. AXIS IV Unknown. AXIS V Current global assessment of functioning equal to 40 Medications Benztropine 1mg po bid Depakote 1000mg po bid Haloperidol 10mg po bid with 5 po bid prn paranoia Hydroxyzine 50 mg every 4 hours as needed for anxiety or agitation Clonazepam 0.5mg po q8hrs prn agitation Acyclovir 400 mg twice daily Treatments 1. The patient is admitted to the inpatient unit and will be provided a safe and secure environment. 2. The patient is denying current active suicidality and is not in need of a one-to-one at this time. 3. The patient is encouraged to participate with group and milieu activities. 4. The patient will be seen by the treatment team on a daily basis to assess symptoms, side effects and response to treatment. 5. continue current medications but add haloperidol 5mg po bid prn paranoia 6. Anticipated length of stay is 3-5 days with discharge on 90 day LRO to [facility] when bed available. 7. [facility] for followup with case finishing machine adjuster Seamus Dutta MD Jul 24, 2017 18:14 8. Haloperidol 10mg po bid 9. VPA, CBC, CMP on 07/19/17 10. Anticipated length of stay is 7-10 days. Disposition: [facility] in [place] if bed available, [facility] for therapy and medication management case finishing machine adjuster Seamus Abrams MD Jul 24, 2017 18:14
--- NOTE | 2017-07-24 20:07 | NUR ---
Nurses Note Evening Patient has been calm and pleasant with reality based conversations. He has had periods of increased anxiety improved with PRN Vistaril and Clonazepam. Patient expressed worry over his length of stay at the hospital. He responded to encouragement and reinforcement of gains made while here. Will continue q 15min. checks for safety and support,encourage continued medication compliance and abstinence from street drugs. Addendum: 07/24/17 at 2011 by MARGARITA HOPSON RN Amended: Links added.
[2017-07-25] MEDS: hydrOXYzine Pamoate 25 mg Capsule PO PRN ×3 (02:56→22:16)
--- NOTE | 2017-07-25 05:53 | NUR ---
nursing, nights, 11-7 s- something to get back to sleep ? tv ? coffee ? i'm moving them to help you clean. o- has appeared to sleep after [id number], [id number] and .75 broken after that. alternates between his room and the dinning room. paces for short periods of time. more accepting of denial of requests. assessed q 15 minutes. a- inadequate/interupted sleep, somewhat clearer and more appropriate, no apparent distress. p- monitor behavior/emotional state, quality, times and amount of sleep, use and effect of medication. lonnie
[2017-07-25] MEDS: Acyclovir 400 mg Tablet PO SCH ×2 (08:26→20:48)
[2017-07-25] MEDS: Divalproex (QD) 500 mg ER24 Tablet PO SCH (08:27)
[2017-07-25 10:03] VITALS: BP 108/69; PULSE 74; RESP 15
[2017-07-25] MEDS: Alum-Mag Hydrox-Simeth 30 mL Suspension PO PRN ×2 (10:06→18:06)
--- NOTE | 2017-07-25 10:07 | NUR ---
Nursing Days Pt reports "I am optimistic things will fall into place. I am just waiting out my time. There are worse places to be like the street." Pt has remained calm, pleasant and cooperative with care. Taking medications as prescribed. Out for breakfast, attending to ADLs, participating in unit activities. He c/o indigestion and received Maalox 10ml po prn. Will continue to monitor and support on the unit as needed. Addendum: 07/25/17 at 1440 by ELDON BARRERA RN "I think the soap is causing a reaction." Pt requested and received Nicorette lozenge and Vistaril 50mg po prn.
--- NOTE | 2017-07-25 14:02 | PCM.PNPSY ---
Subjective Date of Service Jul 25, 2017 Subjective The patient reported today that he is feeling ready to discharge early next week to the [facility]. He reports having worked with Christie Yañez from [facility]. He denied side effects though reports some excess salivation. Sleep: 4.5 hours, "like an go." Appetite: "too much" Suicidal and homicidal ideation: denies Auditory hallucinations: denies Visual hallucinations: denies Other Psychotic Symptoms: some concrete thinking Anxiety: 0/10, "a little, it passed this morning." Depression: 0/10 Current Medications Current Medications Clonazepam 0.5 mg Q8 PRN PO Last administered on 07/25/17 02:55; Admin Dose 0.5 MG; Start 07/23/17 at 16:30 Haloperidol 5 mg BID PRN PO Last administered on 07/24/17 12:39; Admin Dose 5 MG; Start 07/24/17 at 11:35 Mental Status Exam Vital Signs Vital Signs Date Time Temp Pulse Resp B/P Pulse Ox O2 Delivery O2 Flow Rate FiO2 07/25/17 10:03 35.9 74 15 108/69 Appearance: Neat/well groomed Attitude: Pleasant, Cooperative Behavior: No unusual behavior Affect: Restricted Mood: Euthymic Thought Process/Associations: Logical/Sequential, Goal Directed Speech Production: Normal Speech Rate: Lags/Latency Speech Articulation: Normal Thought Content: Perseveration (mild) Danger to Self/Suicidal Ideati: None Danger to Others: None Hallucinations: Auditory (Denies), Visual (Denies) Consciousness: Alert Orientation: Person, Place, Date, Situation Memory: Grossly Intact Estimate Intellectual Function: Average Basis for IQ estimate: Awareness current events, Word use/vocabulary, Educational history, Employment history Attention/Concentration & Cogn: Impaired Insight: Good Judgement: Limited Result Diagram: 07/19/17 1130 07/19/17 1130 Mental Health Plan The patient is a 36-year-old male who has been staying at [facility] for substance use treatment. Reportedly the patient has a history of heroin use disorder, schizophrenia, bipolar disorder, and two previous hospitalizations on the psychiatric unit at [facility]. He required a large amount of neuroleptics and sedatives to calm in the ED. By report, he has showed gradual and steady improvement with social interactions and ADLs since hospitalization. The patient has been stabilizing over the last week and appears to be responding to haloperidol. He still has limited insight and poor frustration tolerance though significantly improved over admission. He would benefit from a LRO on discharge given his responses today and history. Counselor left message with [facility]. [place] AXIS I 1. Psychotic disorder unspecified versus schizophrenia 2. Bipolar disorder by report AXIS II deferred AXIS III None acute. AXIS IV Unknown. AXIS V Current global assessment of functioning equal to 40 Medications Benztropine 1mg po bid Depakote 1000mg po bid Haloperidol 10mg po bid with 5 po bid prn paranoia Hydroxyzine 50 mg every 4 hours as needed for anxiety or agitation Clonazepam 0.5mg po q8hrs prn agitation Acyclovir 400 mg twice daily Treatments 1. The patient is admitted to the inpatient unit and will be provided a safe and secure environment. 2. The patient is denying current active suicidality and is not in need of a one-to-one at this time. 3. The patient is encouraged to participate with group and milieu activities. 4. The patient will be seen by the treatment team on a daily basis to assess symptoms, side effects and response to treatment. 5. Continue current medications 6. Anticipated length of stay is 3-5 days with discharge on 90 day LRO to [facility] when bed available. 7. [facility] for followup with lead case manager Arleth/"Christie". Seamus Brizuela MD Jul 25, 2017 14:02
--- NOTE | 2017-07-25 16:05 | NUR ---
Nurses Note PRN Patient requesting and received Clonazepam 0.5mg PO for increasing anxiety,will assess response. Addendum: 07/25/17 at 2157 by MARGARITA HOPSON RN Nurses Note Evening Patient has been upbeat and cheerful with a positive outlook towards his discharge. He has been hopeful for admission to [facility] this week.Patients' thoughts have been organized and reality based. He remains medication compliant without adverse effects. Will maintain q 15min. checks for safety and support.
--- NOTE | 2017-07-25 16:30 | NUR ---
Benefits Director/Counselor S:"This game is giving me anxiety and indigestion." O: Patient denies any SI or HI, no auditory or visual hallucinations. No anxiety or depression. A: Patient has been out on the unit, is pleasant and cooperative. This typewriters functional tester left a message with the [facility] (Elena) to check status of available beds at the [facility]. P: Follow care plans and coordinate with outpatient providers.
--- NOTE | 2017-07-25 18:01 | NUR ---
[facility] Day Shift Chris took a shower today and went to community meeting this morning. His goal was to work on d/c and to talk to the doctor. His mood was a 7. He has spent a lot of his time in the DR a little in the GR and a decent amount of time in his room. He has been talking casually with the other patients and staff. May be getting warry of [employer] after [employer]yl[employer] freak out. Spent evening watching movie. B: 100 L: 100 D: 75. Pt was observed every 15 min through the shift as ordered.
[2017-07-25] MEDS: Divalproex (QD) 250 mg ER24 Tablet PO SCH (20:47)
--- NOTE | 2017-07-26 05:58 | NUR ---
Nursing Nights [id number] Pt slept 7 hrs without s/sx of distress and woke up once to ask a question at the nurses' station. No behavioral issues, outburst or suicidal ideations. Continue to monitor for emotional well being, behavioral issues, and Q15 min checks for safety. Care continues.
[2017-07-26] MEDS: Divalproex (QD) 250 mg ER24 Tablet PO SCH ×2 (08:17→19:35)
[2017-07-26] MEDS: Acyclovir 400 mg Tablet PO SCH ×2 (08:17→19:36)
--- NOTE | 2017-07-26 12:25 | NUR ---
Nursing Days Pt visible on the unit, pleasant and cooperative. Taking medications as scheduled. He is focused on when he can discharge stating, "Am I discharging today? Tell the doctor I need to see him as soon as he gets here." Pressured speech with clear thought and content. Maintains behavioral control. Continue to monitor and support as needed.
[2017-07-26 12:54] VITALS: BP 115/77; PULSE 85; RESP 16
[2017-07-26] MEDS: Alum-Mag Hydrox-Simeth 30 mL Suspension PO PRN ×2 (15:34→18:37)
--- NOTE | 2017-07-26 15:36 | NUR ---
Medication Administration: Pt requested Klonapin for anxiety 05/17 triggered by thinking of discharging tomorrow. Pt received 0.5mg Clonazepam at 1536, along with Maalox Plus for heartburn and a Nicorette lozenge 2 mg. Pt will be monitored for medication efficacy.
--- NOTE | 2017-07-26 15:54 | PCM.PNPSY ---
Subjective Date of Service Jul 26, 2017 Subjective The patient stated that he was "feeling great" and was ready for discharge. He reported his mood overall is "amazing, good." The patient reported anxiety as he was anticipating discharge from the facility but otherwise denied acute symptoms. The patient has been proactive and trying to contact [facility] regarding his follow-up and care at the [facility]. The patient reports no significant side effects and reports that sialorrhea has improved. Sleep: 7+ hours, "okay." Appetite: "Fine" Suicidal and homicidal ideation: denies Auditory hallucinations: denies Visual hallucinations: denies Other Psychotic Symptoms: some concrete thinking Anxiety: 6-7/10, related to discharge Depression: 0/10 Current Medications Current Medications Divalproex Sodium 1,000 mg BID PO Last administered on 07/26/17t 08:17; Admin Dose 1,000 MG; Start 07/25/17 at 20:30 Mental Status Exam Vital Signs Vital Signs Date Time Temp Pulse Resp B/P Pulse Ox O2 Delivery O2 Flow Rate FiO2 07/26/17 12:54 36.2 85 16 115/77 Appearance: Neat/well groomed Attitude: Pleasant, Cooperative Behavior: No unusual behavior Affect: Restricted Mood: Euthymic Thought Process/Associations: Logical/Sequential, Goal Directed Speech Production: Normal Speech Rate: Normal Speech Articulation: Normal Thought Content: Perseveration (mild on discharge) Danger to Self/Suicidal Ideati: None Danger to Others: None Hallucinations: Auditory (Denies), Visual (Denies) Consciousness: Alert Orientation: Person, Place, Date, Situation Memory: Grossly Intact Estimate Intellectual Function: Average Basis for IQ estimate: Awareness current events, Word use/vocabulary, Educational history, Employment history Attention/Concentration & Cogn: Impaired Insight: Good Judgement: Good Mental Health Plan The patient is a 36-year-old male who has been staying at [facility] for substance use treatment. Reportedly the patient has a history of heroin use disorder, schizophrenia, bipolar disorder, and two previous hospitalizations on the psychiatric unit at [facility]. He required a large amount of neuroleptics and sedatives to calm in the ED. By report, he has showed gradual and steady improvement with social interactions and ADLs since hospitalization. The patient has been stabilizing over the last week and appears to be responding to haloperidol. The patient appears less frustrated today and is willing to cooperate with all discharge plans. According to the patient's counselor, he will go to the [facility] and from there eventually go to the [facility]. The patient expressed an interest in participating in the [facility] program. [place] AXIS I 1. Psychotic disorder unspecified versus schizophrenia 2. Bipolar disorder by history AXIS II deferred AXIS III None acute. AXIS IV Unknown. AXIS V Current global assessment of functioning equal to 45 Medications Benztropine 1mg po bid Depakote 1000mg po bid Haloperidol 10mg po bid with 5 po bid prn paranoia Hydroxyzine 50 mg every 4 hours as needed for anxiety or agitation Clonazepam 0.5mg po q8hrs prn agitation Acyclovir 400 mg twice daily Treatments 1. The patient is admitted to the inpatient unit and will be provided a safe and secure environment. 2. The patient is denying current active suicidality and is not in need of a one-to-one at this time. 3. The patient is encouraged to participate with group and milieu activities. 4. The patient will be seen by the treatment team on a daily basis to assess symptoms, side effects and response to treatment. 5. Continue current medications 6. The patient will discharge to the [facility] in the morning with follow-up psychiatric care. 7. [facility] for followup with caser up Arleth/"Christie". Seamus Brizuela MD Jul 26, 2017 15:54
--- NOTE | 2017-07-26 15:59 | PCM.DIMED ---
Discharge Instructions Date of Service Jul 27, 2017 Dates of Hospitalization Jul 06, 2017 at 19:13 Discharge Diagnosis Discharge Diagnosis AXIS I 1. Psychotic disorder unspecified versus schizoaffective disorder , bipolar 2. Bipolar disorder by history AXIS II deferred AXIS III None acute. AXIS IV Unknown. AXIS V Current global assessment of functioning equal to 45 Test Results Test Results CBC Test 07/19/17 11:30 White Blood Count 8.6th/mm3 (3.8-10.1) Red Blood Count 4.67mil/mm3 (4.40-5.80) Hemoglobin 15.2g/dL (13.8-17.2) Hematocrit 43.4% (41.0-50.0) Mean Corpuscular Volume 92.9fL (81-100) Mean Corpuscular Hemoglobin 32.5pg (27.0-35.0) Mean Corpuscular Hemoglobin Concent 35.0% (32.0-37.0) Red Cell Distribution Width 13.0% (12.3-15.4) Platelet Count 271bil/L (150-400) Neutrophils (%) (Auto) 61.2% (40-74) Lymphocytes (%) (Auto) 27.4% (14-46) Monocytes (%) (Auto) 7.5% (4-12) Eosinophils (%) (Auto) 3.5% (0-5) Basophils (%) (Auto) 0.2% (0-3) CMP Test 07/19/17 11:30 Sodium Level 137mEq/L Potassium Level 4.4mEq/L Chloride Level 100mEq/L Carbon Dioxide Level 21mmol/L Blood Urea Nitrogen 14mg/dL Creatinine 0.71mg/dL Estimat Glomerular Filtration Rate 133mL/min Glucose Level 93mg/dL Calcium Level 9.0mg/dL Total Bilirubin 0.5mg/dL Aspartate Amino Transf (AST/SGOT) 25U/L Alanine Aminotransferase (ALT/SGPT) 25U/L Alkaline Phosphatase 95U/L Total Protein 6.6g/dL Albumin 4.1g/dL Diet Discharge Diet: No restrictions Activity Discharge Activity: No restrictions Patient Instructions Patient Instructions Should you have any thoughts of harming yourself or others, please call the crisis line, your provider, 911, or go to the nearest Emergency Department. Do not change or discontinue your medications without discussing with your provider. You have been given a prescription for 30 days supply of your new medication Follow-up plan [facility] on 07/27/17 at 11am [address] [place] [id number] Seamus Brizuela MD Jul 26, 2017 15:59
[2017-07-26] MEDS ORDERED: HYDR-3797 PO (16:03)
[2017-07-26] MEDS ORDERED: ACYC400T2 PO (16:03)
[2017-07-26] MEDS ORDERED: DIVA500T14 PO (16:03)
[2017-07-26] MEDS ORDERED: HAL5 PO (16:03)
[2017-07-26] MEDS ORDERED: BENZ1TAB7 PO (16:03)
--- NOTE | 2017-07-26 17:48 | NUR ---
Case Manger/Counselor S:"I feel amazing." O: Patient denies any SI or HI, no AVH, no anxiety or depression. A: Patient is excited about his upcoming discharge. He will go to the [facility] in [place] for IOP. From there, the center will connect him with services. P: Follow care plan and coordinate with outpatient providers.
--- NOTE | 2017-07-26 18:04 | NUR ---
Observations 0700 - 1900 Pt affect and mood was same as previous shifts. Pt was pleasant, polite and cooperative when approached. Pt maintained behavior throughout the shift. Pt attended meals in D.R. and ate 100% of his meals. Pt ate snack. Pt attended unit activities. Pt set a daily goal. Pt paced the hallway and was in and out of his room during free time. Pt took 2 showers this shift. Pt had a couple of phone calls arranging a ride for when he discharges in the morning. Pt was excited and anxious about discharging. Pt was observed every 15 minutes through the shift as ordered.
--- NOTE | 2017-07-26 18:34 | NUR ---
EVENING NURSE NOTE [id number]: Pt has been in the milieu at the beginning of the shift, interacting with peers appropriately. Pt is looking forward to discharging tomorrow, but this is also causing a little anxiety. Pt has been pacing and had heartburn. Pt monitored q15 min for location, safety, and accountability.
--- NOTE | 2017-07-27 06:15 | NUR ---
NOC PT slept well with no apparent s/s of distress. Pt slept about 7.75 hours. UP early this am and requested to take shower to get ready for early d/c this am at 0800. PT a little anxious about upcoming d/c. Declined any prn meds. Will transfer today to the [facility] in [place]. Every 15 minutes checks completed through the night for safety. Continue with current treatment plan.
[2017-07-27] MEDS: Acyclovir 400 mg Tablet PO SCH (07:24)
[2017-07-27] MEDS: Divalproex (QD) 250 mg ER24 Tablet PO SCH (07:25)
--- NOTE | 2017-07-27 08:21 | NUR ---
Broker Associate/Counselor S:"I"m feeling great, I'm feeling positive." O:Patient denies any SI or HI, no AVH, no anxiety or depression. A: Patient is being discharged today and will continue with the [facility] in [place]. The center will provide him with Intense Outpatient Treatment as well as arrange for housing. Patient has been provided with a safety plan, and all necessary discharge instructions. Patient has arranged for his own transportation to [place] and will be taken to the Center by a friend. P: Follow discharge instructions.
--- NOTE | 2017-07-27 08:23 | NUR ---
Discharge Pt discharged @ 0805 to friend. He signed all discharge paperwork verbalizing understanding of discharge plan. Refer to case management note. He received all belongings and home medications from pharmacy. His mood was even, affect bright and he expressed feeling hopeful about his future. Denies SI on discharge.
--- NOTE | 2017-07-27 13:49 | PCM.DC.MED ---
Discharge Summary Date of Service Jul 27, 2017 Dates of Hospitalization Date of Hospital Admission Jul 06, 2017 at 19:13 Date of Discharge: Jul 27, 2017 Providers: Admitting Physician: Mio Hansen MD Primary Care Physician: Other,Physician Attending Physician: Mio Hansen MD Diagnosis at Time of Discharge Diagnosis at Time of Discharge AXIS I 1. Psychotic disorder unspecified versus schizoaffective disorder , bipolar 2. Bipolar disorder by history AXIS II deferred AXIS III None acute. AXIS IV Unknown. AXIS V Current global assessment of functioning equal to [address] Longoria note from 07/07/17: IDENTIFICATION: The patient is a 36-year-old male, who had been staying at the [facility] chemical dependency treatment [place]. He is a poor historian and I do not have information about how long he has been staying or the degree of his substance use. REASON FOR ADMISSION: Client presented to the ED in transfer from [facility] for a psych evaluation. He had been posturing in an aggressive manner and threatening staff at [facility]. He is unable to return there until he has a psychiatric evaluation. HISTORY OF PRESENT ILLNESS: The patient presents today for evaluation and treatment of psychosis and threatening behavior. I met with him for a brief evaluation and reviewed course and records kept by [facility]. Client's main issue appears to be an exacerbation of schizophrenia. There are multiple notes in the chart where for several weeks he had been experiencing a high degree of stress and anxiety and had been up all night pacing and smoking. After a period of time, he began to become more psychotic stating delusional things such as "I am a [place]. [place]." "I am telling Alireza Guillen's and my story." He frightened the staff at [facility] and they brought him in here in the ED. He was initially calm but then became quite agitated and over a 48 hour period was given 8 mg of lorazepam, 20 mg of Haldol, 16 mg of Risperdal, 15 mg of Zyprexa, 1 mg of Klonopin, and 1000 mg of ketamine. He required four- point restraints and was transferred to our unit for care. The chronicity of his condition is unclear. At present, it is of a severe intensity, manifesting with symptoms of severe thought disorganization, impulse control, agitation and delusional thought. It all appears to be made worse by poor sleep, and a report that he had self discontinued Suboxone several weeks ago (client did have a heroin addiction in the past). At present, he is presenting with signs of significant emotional liability and marked impairment in judgment, insight, coping and reality testing. His impulse control is tenuous. Client refused to participate in psychiatric review of systems or physical review of systems. He refused to participate in past medical history, although from the ED. Medications none. Allergies none. Illnesses none. Hospital Course The patient initially was fairly organized following significant medication interventions while in the emergency department. He was placed on risperidone 4 mg nightly. However, several days following admission, the patient became increasingly disorganized, paranoid, and delusional. Risperidone was increased to 2 mg daily and 4 mg nightly. Depakote was added on 07/09/17 and eventually titrated to 1000 mg twice a day. The patient became increasingly agitated and risperidone appeared to be ineffective in reducing his psychotic symptoms. Chlorpromazine was added which did appear to reduce his paranoia but was required on a fairly frequent basis. As the patient had also received haloperidol and olanzapine in the emergency department, it was unclear which may have been most effective. He was placed on haloperidol 10 mg twice daily as he has been indicating that he did not need medications or hospitalization and the thought was that he may need a decanoate for compliance on discharge. The patient responded well to the switch to haloperidol with resolution of paranoia and agitation. Chlorpromazine was discontinued. The patient had developed sialorrhea with chlorpromazine but this resolved by the end of his hospital stay. He was still receiving benztropine for dystonia. On discharge, he was exhibiting no dystonia on physical examination and his AIMS score was 0. We had suggested consolidating medications at bedtime but the patient preferred to leave medications as they currently were prescribed. The patient was discharged early in the morning of the in order to receive transportation to the [email or web address] At his last assessment, the patient was reporting his mood was "amazing, good." Sleep was reported as "okay, " 7+ hours per staff. Appetite was reported as "fine." His anxiety was reported as 6-7/10 due to discharge anxiety and depression as 0/10. He denied auditory or visual hallucinations and any thought, intent or plan of hurting himself or others. He denied medication side effects. Exam Vital Signs (Last) Date Time Temp Pulse Resp B/P Pulse Ox O2 Delivery O2 Flow Rate FiO2 07/26/17 12:54 36.2 85 16 115/77 Exam Discharge Mental Status Exam Appearance: Neat/well groomed Attitude: Pleasant, Cooperative Behavior: No unusual behavior Affect: Restricted Mood: Euthymic Thought Process/Associations: Logical/Sequential, Goal Directed Speech Production: Normal Speech Rate: Normal Speech Articulation: Normal Thought Content: Perseveration (mild on discharge) Danger to Self/Suicidal Ideation: None Danger to Others: None Hallucinations: Auditory (Denies), Visual (Denies) Consciousness: Alert Orientation: Person, Place, Date, Situation Memory: Grossly Intact Estimate Intellectual Function: Average Basis for IQ estimate: Awareness current events, Word use/vocabulary, Educational history, Employment history Attention/Concentration & Cognition: Impaired Insight: Good Judgement: Good Test 07/05/17 11:29 07/19/17 11:30 Hold Urine Received (Received) White Blood Count 8.6th/mm3 (3.8-10.1) Red Blood Count 4.67mil/mm3 (4.40-5.80) Hemoglobin 15.2g/dL (13.8-17.2) Hematocrit 43.4% (41.0-50.0) Mean Corpuscular Volume 92.9fL (81-100) Mean Corpuscular Hemoglobin 32.5pg (27.0-35.0) Mean Corpuscular Hemoglobin Concent 35.0% (32.0-37.0) Red Cell Distribution Width 13.0% (12.3-15.4) Platelet Count 271bil/L (150-400) Neutrophils (%) (Auto) 61.2% (40-74) Lymphocytes (%) (Auto) 27.4% (14-46) Monocytes (%) (Auto) 7.5% (4-12) Eosinophils (%) (Auto) 3.5% (0-5) Basophils (%) (Auto) 0.2% (0-3) Sodium Level 137mEq/L (134-144) Potassium Level 4.4mEq/L (3.5-5.2) Chloride Level 100mEq/L (97-108) Carbon Dioxide Level 21mmol/L (18-29) Blood Urea Nitrogen 14mg/dL (6-20) Creatinine 0.71mg/dL (0.76-1.27) Estimat Glomerular Filtration Rate 133mL/min (>59) Glucose Level 93mg/dL (60-99) Calcium Level 9.0mg/dL (8.5-10.1) Total Bilirubin 0.5mg/dL (0.0-1.2) Aspartate Amino Transf (AST/SGOT) 25U/L (0-50) Alanine Aminotransferase (ALT/SGPT) 25U/L (0-44) Alkaline Phosphatase 95U/L (25-150) Total Protein 6.6g/dL (6.4-8.4) Albumin 4.1g/dL (3.4-5.0) Valproic Acid (Depakene) Level 87ug/mL (50-125) Discharge Medications Discharge Medications Acyclovir (Acyclovir) 400 Mg Tablet 400 MG PO BID Prescribed by: REJI BRIZUELA MD Benztropine Mesylate (Benztropine Mesylate) 1 Mg Tablet 1 MG PO BID Prescribed by: REJI BRIZUELA MD Calcium Carbonate/Mag Hydrox (Antacid Chewable Tablet) 1 Each Tab.chew 2-4 EACH PO QID (Reported) Divalproex ER (Divalproex ER) 500 Mg Tab.er.24h 1,000 MG PO BID *DAILY DOSING ONLY* Swallowed whole without chewing to avoid local irritation of the mouth and throat. Prescribed by: REJI BRIZUELA MD Haloperidol (Haloperidol) 5 Mg Tablet 10 MG PO BID Prescribed by: REJI BRIZUELA MD As needed Acetaminophen (Acetaminophen) 500 Mg Capsule 500 MG PO QID PRN PRN For Pain ( Reported) Albuterol HFA (Proair HFA) 8.5 Gm Hfa.aer.ad 2-4 PUFFS INHALATION Q4H PRN PRN For Shortness of Breath (Reported) Hydroxyzine Pamoate (HydrOXYzine Pamoate) 25 Mg Capsule 50 MG PO Q4H PRN PRN anxiety/agitation/insomnia Prescribed by: REJI BRIZUELA MD Ibuprofen (Ibuprofen) 400 Mg Tablet 400 MG PO TIDWM PRN PRN For Pain (Reported) Followup Plan Disposition: No indication for further intermediate at this time, patient released from hold with support from the [facility] and the [facility]. It had been felt in the week prior to discharge that the patient had sufficient support as to not need a 90 day less restrictive order. The patient also expressed an interest in the [facility] program. The patient verbally consented to take the prescribed medications. The patient verbally expressed understanding of the risks, benefits, alternative treatment options, and risks of not taking the prescribed medication. The patient verbally expressed understanding of the medication instructions, that he will adhere to the prescribed medication, and that he will go to all aftercare scheduled appointments. Follow-up plan [facility] on 07/27/17 at 11am [address] [place] [id number] Discharge Diet: No restrictions Discharge Activity: No restrictions Patient Instructions Should you have any thoughts of harming yourself or others, please call the crisis line, your provider, 911, or go to the nearest Emergency Department. Do not change or discontinue your medications without discussing with your provider. You have been given a prescription for 30 days supply of your new medication Reji Brizuela MD Jul 27, 2017 13:49
== END 2017-07-27 08:05 | disposition home or self-care (01) | DRG 885 ==
LOC: SED 10:22 → MHC 07-06 19:13
PROVIDERS: ADMIT Psychiatry & Neurology Psychiatry; ATTEND Psychiatry & Neurology Psychiatry
DX: F29 Unspecified psychosis not due to a substance or known physiological condition (principal); F25.0 Schizoaffective disorder, bipolar type